=== PATIENT | male | born 1940 | race Caucasian/White ===

== ENCOUNTER → 2018-01-25 | Outpatient (REF) | payer MEDICARE ==
[2018-01-25 10:11] LABS: ESTIMATED AVERAGE GLUCOSE 114 MG/DL (60-110); HEMOGLOBIN A1c 5.6 %
[2018-01-25 10:14] LABS: PSA SCREENING 1.31 NG/ML (< 4.0)
== END ==
LOC: SKLAB6 07:00
DX: G30.9 Alzheimer's disease, unspecified (principal); E11.9 Type 2 diabetes mellitus without complications; N18.3 Chronic kidney disease, stage 3 (moderate); I11.0 Hypertensive heart disease with heart failure
CPT/HCPCS: 84443

== ENCOUNTER → 2018-03-29 | Outpatient (REF) | payer MEDICARE ==
[2018-03-29 08:19] LABS: HEMOGLOBIN 12.3 g/dl (13.5-17.5); MEAN CORPUSCULAR HEMOGLOBIN 28.1 pg (27.0-33.0); MEAN CORPUSCULAR HGB CONC 32.4 g/dl (32.0-36.5); MEAN CORPUSCULAR VOLUME 86.8 fl (80.0-96.0); PLATELET COUNT, AUTOMATED 165 10^3/uL (150-450); RED BLOOD COUNT 4.38 10^6/uL (4.30-6.10); RED CELL DISTRIBUTION WIDTH 14.6 % (11.5-14.5)
== END ==
LOC: SKLAB6 07:00
DX: D64.9 Anemia, unspecified (principal)
CPT/HCPCS: 85027

== ENCOUNTER → 2018-06-28 | Outpatient (REF) | payer MEDICARE ==
[2018-06-28 08:17] LABS: HEMATOCRIT 37.7 % (42.0-52.0); HEMOGLOBIN 12.2 g/dl (13.5-17.5); MEAN CORPUSCULAR HEMOGLOBIN 28.8 pg (27.0-33.0); MEAN CORPUSCULAR HGB CONC 32.4 g/dl (32.0-36.5); MEAN CORPUSCULAR VOLUME 88.9 fl (80.0-96.0); PLATELET COUNT, AUTOMATED 167 10^3/uL (150-450); RED BLOOD COUNT 4.24 10^6/uL (4.30-6.10)
[2018-06-28 11:11] LABS: ALBUMIN 3.5 GM/DL (3.2-5.2); BILIRUBIN,TOTAL 0.7 MG/DL (0.2-1.0); CALCIUM LEVEL 8.9 MG/DL (8.8-10.2); CREATININE FOR GFR 1.48 MG/DL (0.70-1.30); GLOMERULAR FILTRATION RATE 48.9 (>42); POTASSIUM SERUM 3.9 MEQ/L (3.5-5.1); TOTAL PROTEIN 6.3 GM/DL (6.4-8.2)
== END ==
LOC: SKLAB6 07:00
PROVIDERS: ATTEND Internal Medicine
DX: I48.91 Unspecified atrial fibrillation (principal); F03.90 Unspecified dementia, unspecified severity, without behavioral disturbance, psychotic disturbance, mood disturbance, and anxiety

== ENCOUNTER → 2018-07-02 | Outpatient (REF) | payer MEDICARE ==
[2018-07-02 13:35] LABS: INFLUENZA A AMPLIFICATION NEGATIVE (NEGATIVE); INFLUENZA B AMPLIFICATION NEGATIVE (NEGATIVE)
[2018-07-02 14:02] LABS: CALCIUM LEVEL 9.4 MG/DL (8.8-10.2); CREATININE FOR GFR 2.64 MG/DL (0.70-1.30); GLOMERULAR FILTRATION RATE 25.1 (>42); POTASSIUM SERUM 3.8 MEQ/L (3.5-5.1)
== END ==
LOC: SKLAB6 06:00
PROVIDERS: ATTEND Internal Medicine
DX: R19.7 Diarrhea, unspecified (principal)

== ENCOUNTER → 2018-07-03 | Outpatient (REF) | payer MEDICARE ==
[2018-07-03 07:25] LABS: HEMATOCRIT 39.5 % (42.0-52.0); HEMOGLOBIN 12.9 g/dl (13.5-17.5); MEAN CORPUSCULAR HGB CONC 32.7 g/dl (32.0-36.5); MEAN CORPUSCULAR VOLUME 88.8 fl (80.0-96.0); PLATELET COUNT, AUTOMATED 182 10^3/uL (150-450); RED BLOOD COUNT 4.45 10^6/uL (4.30-6.10); WHITE BLOOD COUNT 15.5 10^3/uL (4.0-10.0)
[2018-07-03 08:05] LABS: CALCIUM LEVEL 8.7 MG/DL (8.8-10.2); CREATININE FOR GFR 2.17 MG/DL (0.70-1.30); GLOMERULAR FILTRATION RATE 31.5 (>42); POTASSIUM SERUM 3.9 MEQ/L (3.5-5.1)
== END ==
LOC: SKLAB6 07:00
PROVIDERS: ATTEND Internal Medicine
DX: R19.7 Diarrhea, unspecified (principal)

== ENCOUNTER → 2018-07-04 | Outpatient (REF) | payer MEDICARE ==
[2018-07-04 07:56] LABS: BASO % 0.3 % (0.0-1.0); EOS # 0.5 10^3/uL (0.0-0.50); EOS % 4.2 % (0.0-3.0); HEMATOCRIT 41.8 % (42.0-52.0); HEMOGLOBIN 13.6 g/dl (13.5-17.5); LYMPH # 3.1 10^3/uL (1.5-4.5); LYMPH % 27.4 % (24.0-44.0); MEAN CORPUSCULAR HEMOGLOBIN 29.3 pg (27.0-33.0); MEAN CORPUSCULAR HGB CONC 32.5 g/dl (32.0-36.5); MEAN CORPUSCULAR VOLUME 90.1 fl (80.0-96.0); MONO # 0.7 10^3/uL (0.0-0.8); MONO % 6.4 % (0.0-5.0); NEUTROPHILS % 60.9 % (36.0-66.0); PLATELET COUNT, AUTOMATED 218 10^3/uL (150-450); RED BLOOD COUNT 4.64 10^6/uL (4.30-6.10); WHITE BLOOD COUNT 11.4 10^3/uL (4.0-10.0)
[2018-07-04 08:33] LABS: CALCIUM LEVEL 8.9 MG/DL (8.8-10.2); CREATININE FOR GFR 1.56 MG/DL (0.70-1.30); GLOMERULAR FILTRATION RATE 46.1 (>42); POTASSIUM SERUM 3.8 MEQ/L (3.5-5.1)
== END ==
LOC: SKLAB6 07:00
PROVIDERS: ATTEND Internal Medicine
DX: I48.91 Unspecified atrial fibrillation (principal)

== ENCOUNTER → 2018-07-05 | Outpatient (REF) | payer MEDICARE ==
[2018-07-05 06:33] LABS: APPEARANCE, URINE TURBID (CLEAR); BACTERIA, URINE AUTO 2+ (NEGATIVE); BILIRUBIN, URINE AUTO NEGATIVE (NEGATIVE); BLOOD, URINE BLOOD 2+ (NEGATIVE); COLOR, URINE YELLOW (YELLOW); GLUCOSE, URINE (UA) AUTO NEGATIVE (NEGATIVE); KETONE, URINE AUTO NEGATIVE (NEGATIVE); LEUKOCYTE ESTERASE, URINE AUTO 3+ (NEGATIVE); MUCUS, URINE SMALL (NEGATIVE); NITRITE, URINE AUTO NEGATIVE (NEGATIVE); PROTEIN, URINE AUTO 1+ mg/dL (NEGATIVE); RBC, URINE AUTO 26 /HPF (0-3); SPECIFIC GRAVITY URINE AUTO 1.011 (1.002-1.035); SQUAMOUS EPITHELIAL CELL UR AU 0 /HPF (0-6); UROBILINOGEN, URINE AUTO 0.2 mg/dL (0.0-2.0); WBC, URINE AUTO TNTC /HPF (0-3)
== END ==
LOC: SKLAB6 05:45
PROVIDERS: ATTEND Internal Medicine
DX: R39.89 Other symptoms and signs involving the genitourinary system (principal); Z79.899 Other long term (current) drug therapy

== ENCOUNTER → 2018-07-10 | Outpatient (REF) | payer MEDICARE ==
[2018-07-10 08:35] LABS: CALCIUM LEVEL 8.5 MG/DL (8.8-10.2); CREATININE FOR GFR 1.38 MG/DL (0.70-1.30); GLOMERULAR FILTRATION RATE 53.1 (>42); POTASSIUM SERUM 4.1 MEQ/L (3.5-5.1)
== END ==
LOC: SKLAB6 07:00
PROVIDERS: ATTEND Internal Medicine
DX: I10 Essential (primary) hypertension (principal); I48.0 Paroxysmal atrial fibrillation; G30.9 Alzheimer's disease, unspecified; Z79.899 Other long term (current) drug therapy

== ENCOUNTER → 2018-07-26 | Outpatient (REF) | payer MEDICARE ==
[2018-07-26 09:12] LABS: HEMOGLOBIN A1c 5.7 %
== END ==
LOC: SKLAB6 07:00
PROVIDERS: ATTEND Internal Medicine
DX: E11.9 Type 2 diabetes mellitus without complications (principal)

== ENCOUNTER → 2018-08-01 | Outpatient (REF) | payer MEDICARE ==
[2018-08-01 16:12] LABS: HEMATOCRIT 38.7 % (42.0-52.0); HEMOGLOBIN 12.2 g/dl (13.5-17.5); MEAN CORPUSCULAR HEMOGLOBIN 28.6 pg (27.0-33.0); MEAN CORPUSCULAR HGB CONC 31.5 g/dl (32.0-36.5); MEAN CORPUSCULAR VOLUME 90.8 fl (80.0-96.0); PLATELET COUNT, AUTOMATED 168 10^3/uL (150-450); RED BLOOD COUNT 4.26 10^6/uL (4.30-6.10); WHITE BLOOD COUNT 10.1 10^3/uL (4.0-10.0)
--- NOTE | 2018-08-01 16:42 | REP ---
Left toes four views History: The left toe cellulitis There is no acute fracture or dislocation. There is narrowing of the proximal and distal interphalangeal joint spaces. A defect is present in the soft tissue of the second digit. There is no definite evidence of osteomyelitis. Impression: Degenerative change as described above. Electronically Signed by Barber Miller MD 08/01/2018 04:33 P
== END ==
LOC: SKLAB6 16:09
PROVIDERS: ATTEND Internal Medicine
DX: M19.072 Primary osteoarthritis, left ankle and foot (principal); L08.9 Local infection of the skin and subcutaneous tissue, unspecified

== ENCOUNTER → 2018-08-17 | Outpatient (REF) | payer MEDICARE ==
--- NOTE | 2018-08-17 15:57 | REP ---
LEFT TOE, FOUR VIEWS: HISTORY: Persistent cellulitis 2nd toe. COMPARISON: 08/01/2018 There is no acute fracture or dislocation. There is narrowing of the first metatarsal phalangeal and proximal and distal interphalangeal joint spaces. A defect is present in the soft tissue of the second digit. Soft tissue swelling is present. There is no definite evidence of osteomyelitis. IMPRESSION: Degenerative change as described above. Unreviewed
== END ==
LOC: SKLAB6 14:08
PROVIDERS: ATTEND Internal Medicine
DX: L03.032 Cellulitis of left toe (principal)

== ENCOUNTER → 2018-10-15 | Outpatient (REF) | payer MEDICARE ==
[2018-10-15 11:30] LABS: HEMOGLOBIN 13.7 g/dl (13.5-17.5); MEAN CORPUSCULAR HEMOGLOBIN 29.5 pg (27.0-33.0); MEAN CORPUSCULAR HGB CONC 32.6 g/dl (32.0-36.5); MEAN CORPUSCULAR VOLUME 90.5 fl (80.0-96.0); PLATELET COUNT, AUTOMATED 196 10^3/uL (150-450); RED BLOOD COUNT 4.64 10^6/uL (4.30-6.10); WHITE BLOOD COUNT 11.8 10^3/uL (4.0-10.0)
[2018-10-15 11:51] LABS: ERYTHROCYTE SEDIMENTATION RATE 47 mm/hr (0-20)
[2018-10-15 11:53] LABS: C REACTIVE PROTEIN QUANTITATIV 4.98 MG/DL (0.00-0.30); URIC ACID 7.3 MG/DL (3.5-7.2)
== END ==
LOC: SKLAB6 10:28
PROVIDERS: ATTEND Internal Medicine
DX: R22.32 Localized swelling, mass and lump, left upper limb (principal); M79.89 Other specified soft tissue disorders

== ENCOUNTER → 2018-10-17 | Outpatient (REF) | payer MEDICARE | LOC: SKLAB6 07:00 | PROVIDERS: ATTEND Internal Medicine | DX: M10.9 Gout, unspecified (principal) ==

== ENCOUNTER → 2018-10-21 | Outpatient (REF) | payer MEDICARE | LOC: SKLAB6 07:00 | PROVIDERS: ATTEND Internal Medicine | DX: R31.9 Hematuria, unspecified (principal) ==

== ENCOUNTER → 2018-10-21 | Outpatient (REF) | payer MEDICARE | LOC: SKLAB6 09:58 → EDSTATUS 10:59 → SKLAB6 10:59 | PROVIDERS: ATTEND Internal Medicine | DX: R31.9 Hematuria, unspecified (principal) ==

== ENCOUNTER → 2018-10-26 | Outpatient (REF) | payer MEDICARE ==
[2018-10-26 07:53] LABS: CALCIUM LEVEL 8.1 MG/DL (8.8-10.2); CREATININE FOR GFR 1.33 MG/DL (0.70-1.30); GLOMERULAR FILTRATION RATE 55.2 (>42); POTASSIUM SERUM 4.3 MEQ/L (3.5-5.1)
== END ==
LOC: SKLAB6 07:00
PROVIDERS: ATTEND Internal Medicine
DX: N39.0 Urinary tract infection, site not specified (principal)

== ENCOUNTER → 2018-10-30 | Outpatient (REF) | payer MEDICARE ==
[2018-10-30 12:02] LABS: HEMATOCRIT 37.7 % (42.0-52.0); HEMOGLOBIN 12.4 g/dl (13.5-17.5); MEAN CORPUSCULAR HEMOGLOBIN 29.9 pg (27.0-33.0); MEAN CORPUSCULAR HGB CONC 32.9 g/dl (32.0-36.5); MEAN CORPUSCULAR VOLUME 90.8 fl (80.0-96.0); PLATELET COUNT, AUTOMATED 208 10^3/uL (150-450); RED BLOOD COUNT 4.15 10^6/uL (4.30-6.10); WHITE BLOOD COUNT 9.5 10^3/uL (4.0-10.0)
== END ==
LOC: SKLAB6 10:34
PROVIDERS: ATTEND Internal Medicine
DX: R31.9 Hematuria, unspecified (principal); N39.0 Urinary tract infection, site not specified

== ENCOUNTER → 2018-10-31 | Outpatient (REF) | payer MEDICARE | LOC: SKLAB6 08:37 | PROVIDERS: ATTEND Internal Medicine | DX: R31.9 Hematuria, unspecified (principal); N39.0 Urinary tract infection, site not specified ==

== ENCOUNTER → 2018-11-01 | Outpatient (REF) | payer MEDICARE, OTHER, MEDICAID ==
[~2018-11-01] MED LIST: ACET-907 PO; AMLO5TAB6 PO; BISA10SU20 PR; CARV6.25 PO; COLA100C5 PO; D-10TAB2 PO; ELIQ2.5T PO; ENEMENE PR; FLOM0.4C39 PO; LEVA750T7 PO; LOSA50TA88 PO; MOM30SS PO; QUET1TAB7 PO; QUET1TAB8 PO; QUET5TAB PO; REME15TA PO; SYST1SOL4 OU
[2018-11-01 10:53] LABS: HEMOGLOBIN 12.6 g/dl (13.5-17.5); MEAN CORPUSCULAR HEMOGLOBIN 30.1 pg (27.0-33.0); MEAN CORPUSCULAR HGB CONC 32.3 g/dl (32.0-36.5); MEAN CORPUSCULAR VOLUME 93.1 fl (80.0-96.0); PLATELET COUNT, AUTOMATED 175 10^3/uL (150-450); RED BLOOD COUNT 4.19 10^6/uL (4.30-6.10); WHITE BLOOD COUNT 16.8 10^3/uL (4.0-10.0)
[2018-11-01 11:22] LABS: CALCIUM LEVEL 8.7 MG/DL (8.8-10.2); CREATININE FOR GFR 1.56 MG/DL (0.70-1.30); GLOMERULAR FILTRATION RATE 45.9 (>42); POTASSIUM SERUM 4.4 MEQ/L (3.5-5.1); THYROID STIMULATING HORMONE 0.516 uIU/ML (0.358-3.740)
--- NOTE | 2018-11-01 13:49 | REP ---
PA and lateral chest: There are no comparisons. The lung harrington are clear. The cardiac size is upper normal. The gustavo, mediastinum, and skeletal structures are unremarkable. Impression: Essentially negative PA and lateral chest. Electronically Signed by Orlando Lou MD 11/01/2018 01:42 P
== END ==
LOC: SKLAB6 11:00
PROVIDERS: ATTEND Internal Medicine
DX: D72.829 Elevated white blood cell count, unspecified (principal); R53.83 Other fatigue

== ENCOUNTER → 2018-11-02 | Outpatient (REF) | payer MEDICARE, OTHER, MEDICAID ==
[2018-11-02 07:31] LABS: HEMOGLOBIN 12.5 g/dl (13.5-17.5); MEAN CORPUSCULAR HEMOGLOBIN 29.8 pg (27.0-33.0); MEAN CORPUSCULAR HGB CONC 32.1 g/dl (32.0-36.5); MEAN CORPUSCULAR VOLUME 93.1 fl (80.0-96.0); PLATELET COUNT, AUTOMATED 162 10^3/uL (150-450); RED BLOOD COUNT 4.19 10^6/uL (4.30-6.10); WHITE BLOOD COUNT 10.1 10^3/uL (4.0-10.0)
== END ==
LOC: SKLAB6 07:00
PROVIDERS: ATTEND Internal Medicine
DX: D72.829 Elevated white blood cell count, unspecified (principal)

== ENCOUNTER 2018-11-09 17:20 | Inpatient (IN) | payer MEDICARE, OTHER, MEDICAID ==
[~2018-11-09] VITALS: Ht 188 cm; Wt 100.1 kg
[2018-11-09] MEDS ORDERED: NS 1,000 ML IV SCH (17:41)
[2018-11-09] MEDS ORDERED: LIDOCAINE 2% 5ML JELLY UROJET TOP ONE (18:00)
[2018-11-09 18:39] LABS: BASO % 0.5 % (0.0-1.0); EOS # 0.3 10^3/uL (0.0-0.50); EOS % 4.3 % (0.0-3.0); HEMATOCRIT 39.5 % (42.0-52.0); HEMOGLOBIN 12.8 g/dl (13.5-17.5); LYMPH # 2.1 10^3/uL (1.5-4.5); LYMPH % 28.9 % (24.0-44.0); MEAN CORPUSCULAR HEMOGLOBIN 30.1 pg (27.0-33.0); MEAN CORPUSCULAR HGB CONC 32.4 g/dl (32.0-36.5); MEAN CORPUSCULAR VOLUME 92.9 fl (80.0-96.0); MONO # 0.6 10^3/uL (0.0-0.8); MONO % 8.5 % (0.0-5.0); NEUTROPHILS # 4.1 10^3/uL (1.8-7.7); NEUTROPHILS % 56.3 % (36.0-66.0); PLATELET COUNT, AUTOMATED 158 10^3/uL (150-450); RED BLOOD COUNT 4.25 10^6/uL (4.30-6.10); WHITE BLOOD COUNT 7.4 10^3/uL (4.0-10.0)
[2018-11-09] MEDS ORDERED: QUET1TAB8 PO (18:48)
[2018-11-09] MEDS ORDERED: LOSA50TA88 PO (18:48)
[2018-11-09] MEDS ORDERED: QUET5TAB PO (18:48)
[2018-11-09] MEDS ORDERED: QUET1TAB7 PO (18:48)
[2018-11-09] MEDS ORDERED: ACET-907 PO (18:48)
[2018-11-09] MEDS ORDERED: ENEMENE PR (18:48)
[2018-11-09] MEDS ORDERED: BISA10SU20 PR (18:48)
[2018-11-09] MEDS ORDERED: REME15TA PO (18:48)
[2018-11-09] MEDS ORDERED: ELIQ2.5T PO (18:48)
[2018-11-09] MEDS ORDERED: SYST1SOL4 OU (18:48)
[2018-11-09] MEDS ORDERED: COLA100C5 PO (18:48)
[2018-11-09] MEDS ORDERED: MOM30SS PO (18:48)
[2018-11-09] MEDS ORDERED: FLOM0.4C39 PO (18:48)
[2018-11-09] MEDS ORDERED: D-10TAB2 PO (18:48)
[2018-11-09] MEDS ORDERED: AMLO5TAB6 PO (18:48)
[2018-11-09] MEDS ORDERED: CARV6.25 PO (18:48)
[2018-11-09 18:51] LABS: INR 1.14; PROTHROMBIN TIME 14.3 SECONDS (11.8-14.0)
[2018-11-09 18:52] LABS: PARTIAL THROMBOPLASTIN TIME 38.2 SECONDS (25.0-38.4)
[2018-11-09 19:12] LABS: ALBUMIN 3.5 GM/DL (3.2-5.2); BILIRUBIN,DIRECT 0.2 MG/DL (0.0-0.2); BILIRUBIN,TOTAL 0.5 MG/DL (0.2-1.0); MAGNESIUM LEVEL 2.2 MG/DL (1.8-2.4); TOTAL PROTEIN 6.8 GM/DL (6.4-8.2)
[2018-11-09] MEDS ORDERED: MEROPENEM INJ 1 GM in APPROPRIATE DILUENT 1 EA IV ONE (19:15)
--- NOTE | 2018-11-09 19:15 | REP ---
Portable chest, 06:42 p.m., single AP view with the patient sitting: Comparison is 11/01/2018. The lung harrington are clear. The cardiac size is normal. The thoracic aorta is tortuous, unchanged. There is an enchondroma versus bone infarct in the left humeral head, unchanged. Impression: No acute cardiopulmonary findings. Electronically Signed by Orlando Lou MD 11/09/2018 07:06 P
[2018-11-09] MEDS ORDERED: NS 1,000 ML IV ONE ×2 (19:30)
[2018-11-09] MEDS ORDERED: ACETAMINOPHEN TAB 650MG DOSE (2X325MG) PO PRN (20:30)
[2018-11-09] MEDS ORDERED: MORPHINE 4 MG/ML 1ML VIAL/SYRINGE (J2270) IV PRN (20:30)
[2018-11-09] MEDS ORDERED: TAMSULOSIN 0.4 MG CAP PO ONE (20:30)
[2018-11-09] MEDS: NS 1,000 ML IV SCH (20:30)
--- NOTE | 2018-11-09 20:48 | HPEPDOC ---
General Date of Admission 11/09/18 Date of Service: Nov 09, 2018 Attending Physician: IRENA BRENNAN MD Chief Complaint The patient is a 78-year-old male admitted with a reason for visit of Kidney Iss ues. Source: RN/, [facility] records Exam Limitations: Dementia Timing/Duration: Unsure Severity: Other (applicable) Associated Symptoms: Other (. Urinary irritation) History of Present Illness 78 years old white male who has advanced dementia, resides at [facility] was sent from there with the diagnosis of left-sided renal colic left-sided hydronephrosis and possible 9 mm stone. Urology production sound mixer was called by ED and was advised to admit patient and patient will be evaluated by urology and in a.m. for any further intervention if needed. Patient has advanced dementia, unable to obtained history from him. History was obtained from covering M.D. at night and from her [facility] records, which were reviewed personally by ut Home Medications Scheduled Amlodipine Besylate (Amlodipine Besylate) 5 Mg Tablet, 5 MG PO DAILY, (Reported) Apixaban (Eliquis) 2.5 Mg Tablet, 2.5 MG PO BID, (Reported) Carvedilol (Carvedilol) 6.25 Mg Tablet, 6.25 MG PO BID, (Reported) Cholecalciferol (Vitamin D3) (Vitamin D3) 1,000 Unit Tablet, 1,000 UNIT PO DAILY, (Reported) Docusate Sodium (Colace) 100 Mg Capsule, 200 MG PO DAILY, (Reported) Losartan Potassium (Losartan Potassium) 50 Mg Tablet, 50 MG PO DAILY, (Reported) Milk Of Magnesia (Milk of Magnesia) 2,400 Mg/10 Ml Oral.susp, 30 ML PO DAILY, (Reported) Mirtazapine (Remeron) 15 Mg Tablet, 15 MG PO QHS, (Reported) Propylene Glycol/Peg 400/Pf (Systane 0.3-0.4% Eye Drop) 1 Each Droperette, 1 DROP OU BID, (Reported) Quetiapine Fumarate (Quetiapine Fumarate) 25 Mg Tablet, 37.5 MG PO QAM, (Reported) TAKE WITH 50MG TAB = 87.5MG DOSE Quetiapine Fumarate (Quetiapine Fumarate) 50 Mg Tablet, 50 MG PO DAILY, (Reported) 87.5MG DOSE Quetiapine Fumarate (Quetiapine Fumarate) 100 Mg Tablet, 100 MG PO QHS, (Reported) Tamsulosin HCl (Flomax) 0.4 Mg Capsule, 0.4 MG PO QHS, (Reported) Scheduled PRN Acetaminophen (Tylenol) 325 Mg Tablet, 650 MG PO Q4H PRN for PAIN, (Reported) Bisacodyl (Bisacodyl) 10 Mg Supp.rect, 10 MG NM DAILY PRN for CONSTIPATION, (Reported) Sodium Phosphate,[place]-Dibasic (Enema) 133 Ml Enema, 1 JOEL NM DAILY PRN for CONSTIPATION, (Reported) Allergies Coded Allergies: Penicillins (Verified Allergy, Unknown, 11/09/18) Past Medical History Medical History Dementia, A. fib, agitation secondary to dementia, constipation, hypertension, BPH, vitamin D deficiency Surgical History None available Family History Significant Family History: Other Social History * Smoker: non-smoker (unavailable) Alcohol: Denies Drugs: denies A-FIB/CHADSVASC A-FIB History Current/History of A-Fib/PAF?: Yes Current PO Anticoag Therapy: Yes Review of Systems Constitutional: Denies: Chills, Fever, Malaise, Night Sweats, Weakness, Fatigue, Weight Loss, Lethargy, Other Eyes: Denies: Pain, Vision change, Conjunctivae inflammation, Eyelid inflammation, Redness, Other ENT: Denies: Head Aches, Ear Pain, Dysphagia, Sinus Congestion, Post Nasal Drip, Sore Throat, Epistaxis, Other Symptoms Skin: Denies: Rash, Lesions, Jaundice, Bruising, Itching, Dry, Breakdown, Nail Changes, Other Pulmonary: Denies: Dyspnea, Cough, Pleuritic Chest Pain, Other Symptoms Cardiovascular: Denies: Chest Pain, Palpitations, Orthopnea, Paroxysmal Noc. Dyspnea, Edema, Lt Headedness, Other Symptoms Gastrointestinal: Denies: Nausea, Vomiting, Abdominal Pain, Diarrhea, Constipation, Melena, Hematochezia, Other Symptoms Genitourinary: Reports: Dysuria Hematologic: Denies: Bruising, Bleeding Excessively, Petecchia, Purpura, Enlarged Lymph Nodes, Other Hematologic Endocrine: Denies: Polydipsia, Polyphagia, Polyuria, Heat Intolerance, Cold Intolerance, Other Endocrine Sx Musculoskeletal: Denies: Neck Pain, Back Pain, Shoulder Pain, Arm Pain, Hand Pain, Leg Pain, Foot Pain, Joint Pain, Muscle Pain, Spasms, Other Symptoms Neurological: Denies: Weakness, Numbness, Incoordination, Change in speech, Confusion, Seizures, Other Symptoms Psych: Denies: Mood Normal, Anxiety, Depression, Memory Issues, Thoughts of Self Harm, Anger, Thoughts of Harming Other, Other Psych Physical Examination General Exam: Positive: Cooperative, Mild Distress, Other (anxious) Eye Exam: Positive: PERRLA, Conjunctiva & lids normal ENT Exam: Positive: Atraumatic Neck Exam: Positive: Supple Chest Exam: Positive: Clear to auscultation Heart Exam: Positive: Rate Normal, Normal S1, Normal S2 Abdomen Exam: Positive: Normal bowel sounds, Soft Extremity Exam: Positive: Normal pulses Skin Exam: Positive: Nl turgor and temperature Neuro Exam: Positive: Other (, unable to do exam) Psych Exam: Positive: Anxiety Vital Signs Vital Signs Date Time Temp Pulse Resp B/P (MAP) Pulse Ox O2 Delivery O2 Flow Rate FiO2 11/09/18 19:37 97.3 63 20 153/76 (101) 98 Room Air Laboratory Data Labs 24H Laboratory Tests 2 11/09/18 17:49: Immature Granulocyte % (Auto) 1.5, White Blood Count 7.4, Red Blood Count 4.25L, Hemoglobin 12.8L, Hematocrit 39.5L, Mean Corpuscular Volume 92.9, Mean Corpuscular Hemoglobin 30.1, Mean Corpuscular Hemoglobin Concent 32.4, Red Cell Distribution Width 13.8, Platelet Count 158, Neutrophils (%) (Auto) 56.3, Lymphocytes (%) (Auto) 28.9, Monocytes (%) (Auto) 8.5H, Eosinophils (%) (Auto) 4.3H, Basophils (%) (Auto) 0.5, Neutrophils # (Auto) 4.1, Lymphocytes # (Auto) 2.1, Monocytes # (Auto) 0.6, Eosinophils # (Auto) 0.3, Basophils # (Auto) 0.0, Nucleated Red Blood Cells % (auto) 0.0, Prothrombin Time 14.3H, Prothromb Time International Ratio 1.14, Activated Partial Thromboplast Time 38.2, Urine Color YELLOW, Urine Appearance TURBIDH, Urine pH 6.0, Urine Specific [place] 1.013, Urine Protein 2+H, Urine Glucose (UA) NEGATIVE, Urine Ketones NEGATIVE, Urine Blood 3+H, Urine Nitrite POSITIVEH, Urine Bilirubin NEGATIVE, Urine Urobilinogen 0.2, Urine Leukocyte Esterase 3+H, Urine WBC (Auto) TNTCH, Urine RBC (Auto) TNTCH, Urine Hyaline Casts (Auto) 0, Urine Bacteria (Auto) 1+H, Urine Squamous Epithelial Cells 0, Urine Amorphous Sediment SMALLH, Urine Mucus (Auto) SMALL, Urine Sperm (Auto) , Lactic Acid Level 2.3*H, Magnesium Level 2.2, Aspartate Amino Transf (AST/SGOT) 15, Alanine Aminotransferase (ALT/SGPT) 28, Alkaline Phosphatase 94, Total Bilirubin 0.5, Direct Bilirubin 0.2, Total Protein 6.8, Albumin 3.5, Albumin/Globulin Ratio 1.06, Lipase 101 11/09/18 18:37: POC Glucose (Misc Panel) 130H, POC Sodium (Misc Panel) 142, POC Potassium (Misc Panel) 4.9, POC Chloride (Misc Panel) 107, POC Total CO2 (Misc Panel) 24.0, POC Blood Urea Nitrogen (Misc Panel 34H, POC Ionized Calcium (Misc Panel) 4.8, POC Creatinine (Misc Panel) 1.8H, POC Hematocrit (Misc Panel) 37.0L CBC/BMP Laboratory Tests 11/09/18 17:49 Red Blood Count 4.25 L, Mean Corpuscular Volume 92.9, Mean Corpuscular Hemoglobin 30.1, Mean Corpuscular Hemoglobin Concent 32.4, Red Cell Distribution Width 13.8, Neutrophils (%) (Auto) 56.3, Lymphocytes (%) (Auto) 28.9, Monocytes (%) (Auto) 8.5 H, Eosinophils (%) (Auto) 4.3 H, Basophils (%) (Auto) 0.5, Neutrophils # (Auto) 4.1, Lymphocytes # (Auto) 2.1, Monocytes # (Auto) 0.6, Eosinophils # (Auto) 0.3, Basophils # (Auto) 0.0 Microbiology Microbiology 11/09/18 Blood Culture, Received Pending 11/09/18 Blood Culture, Received Pending 11/09/18 Urine Culture, Received Pending Problems (1) Renal colic on left side Status: Acute Problem Text: 78 years old white male admitted with the left-sided hydronephrosis, left renal calculi and renal colic Patient does have a history of for renal calculi in the past Admit patient to the medical floor IV fluids normal saline 100 mL per hour Pain management with morphine sulfate 4 mg IV every 4-6 hours when necessary urology consult was called from ED and patient will be seen in a.m. Hold Nicci course and keep patient nothing by mouth in anticipation of urology to do any invasive procedure such as cystoscopy with stone removal Continue all other home meds Patient nothing by mouth except meds Activity as tolerated Bilateral SCDs for DVT prophylaxis Addendum: Dr. Kothari called me Guest discussed with her. Patient will be possibly taken to or on Monday or Monday. In the meantime, will give a trial of IV fluids, pain management and Flomax to see if the patient can pass the stone (2) Hydronephrosis Status: Acute Problem Text: Most likely secondary to obstruction IV fluids Nothing by mouth Further, as per urology recommendations (3) UTI (urinary tract infection) Status: Acute Problem Text: Pt has already been started on Merrem Will continue the same Urine cultures has been ordered I&O's Follow urine cultures report once available and change antibiotics accordingly Plan / VTE VTE Prophylaxis Ordered?: Yes IRENA BRENNAN MD Nov 09, 2018 20:48
[2018-11-09] MEDS: MIRTAZAPINE 15 MG TAB PO SCH (23:53)
[2018-11-09] MEDS: QUEtiapine FUMARATE 100 MG TAB PO SCH (23:55)
[2018-11-09] MEDS: CARVedilol 6.25 MG TAB PO SCH (23:55)
[2018-11-10] VITALS (8 sets, daily range): BP systolic 113–155; BP diastolic 58–95
[2018-11-10 08:37] LABS: HEMATOCRIT 35.8 % (42.0-52.0); HEMOGLOBIN 11.5 g/dl (13.5-17.5); MEAN CORPUSCULAR HEMOGLOBIN 29.5 pg (27.0-33.0); MEAN CORPUSCULAR HGB CONC 32.1 g/dl (32.0-36.5); MEAN CORPUSCULAR VOLUME 91.8 fl (80.0-96.0); PLATELET COUNT, AUTOMATED 144 10^3/uL (150-450); WHITE BLOOD COUNT 7.2 10^3/uL (4.0-10.0)
[2018-11-10 09:01] LABS: ALBUMIN 2.8 GM/DL (3.2-5.2); BILIRUBIN,TOTAL 0.6 MG/DL (0.2-1.0); CALCIUM LEVEL 8.4 MG/DL (8.8-10.2); CREATININE FOR GFR 1.35 MG/DL (0.70-1.30); GLOMERULAR FILTRATION RATE 54.3 (>42); POTASSIUM SERUM 4.3 MEQ/L (3.5-5.1); TOTAL PROTEIN 6.2 GM/DL (6.4-8.2)
[2018-11-10] MEDS: CARVedilol 6.25 MG TAB PO SCH ×2 (09:59→20:22)
[2018-11-10] MEDS: VITAMIN D 1,000 INTERNATIONAL UNITS TABLET PO SCH (09:59)
[2018-11-10] MEDS: MEROPENEM INJ 1 GM in APPROPRIATE DILUENT 1 EA IV SCH ×2 (09:59→20:21)
[2018-11-10] MEDS: QUEtiapine FUMARATE 25 MG TAB PO SCH (10:00)
[2018-11-10] MEDS: amLODIPine 5 MG TAB PO SCH (10:00)
[2018-11-10] MEDS: LOSARTAN 50 MG TAB PO SCH (10:01)
[2018-11-10] MEDS: QUEtiapine FUMARATE 50 MG TAB PO SCH (10:01)
--- NOTE | 2018-11-10 10:32 | ECGEPIP ---
[facility] Test Date: 2018-11-10 Pat Name: HAYES PANG Department: Room: [place] [address] Gender: Male Dentofacial Orthopedics Dentist: JUDI : 1940 Requested By: BRIAN Elizabeth Order Number: [id number] Reading MD: Regino Bernabe Measurements Intervals [place] Rate: 59 P: 51 FL: 208 QRS: 1 QRSD: 84 T: 0 QT: 383 QTc: 380 Interpretive Statements SINUS BRADYCARDIA WITH OCCASIONAL SUPRAVENTRICULAR PREMATURE COMPLEXES POOR R WAVE PROGRESSION COMPARED TO 11/09/18 POOR R WAVE PROGRESSION IS NEW, SUSPECT DUE TO LEAD POSITIONING Electronically Signed on 11-10-2018 10:31:58 EDT by Regino Bernabe
--- NOTE | 2018-11-10 12:51 | IPNPDOC ---
Date Seen The patient was seen on 11/10/18. Progress Note SUBJECTIVE: Disoriented to where he is and the date, but able to converse appropriately about why he is int he hospital."Kidney stone that needs to be removed." He denies anydysuria, urgency, frequency, flank pain, or chills. sitter at the bedside says pt has been cooperative and has not attempted to remove his iv site or interfere with his care. OBJECTIVE: Physical Examination VITALS: PLS SEE BELOW General Exam: Positive: Cooperative, Mild Distress, Other (anxious) Eye Exam: Positive: PERRLA, Conjunctiva & lids normal ENT Exam: Positive: Atraumatic Neck Exam: Positive: Supple Chest Exam: Positive: Clear to auscultation Heart Exam: Positive: Rate Normal, Normal S1, Normal S2 Abdomen Exam: Positive: Normal bowel sounds, Soft Extremity Exam: Positive: Normal pulses Skin Exam: Positive: Nl turgor and temperature Neuro Exam: Positive: Other (, unable to do exam) Psych Exam: Positive: Anxiety ADMISSION LABORATORY DATA: 11/09/18 17:49: Immature Granulocyte % (Auto) 1.5, White Blood Count 7.4, Red Blood Count 4.25L, Hemoglobin 12.8L, Hematocrit 39.5L, Mean Corpuscular Volume 92.9, Mean Corpuscular Hemoglobin 30.1, Mean Corpuscular Hemoglobin Concent 32.4, Red Cell Distribution Width 13.8, Platelet Count 158, Neutrophils (%) (Auto) 56.3, Lymphocytes (%) (Auto) 28.9, Monocytes (%) (Auto) 8.5H, Eosinophils (%) (Auto) 4.3H, Basophils (%) (Auto) 0.5, Neutrophils # (Auto) 4.1, Lymphocytes # (Auto) 2.1, Monocytes # (Auto) 0.6, Eosinophils # (Auto) 0.3, Basophils # (Auto) 0.0, Nucleated Red Blood Cells % (auto) 0.0, Prothrombin Time 14.3H, Prothromb Time International Ratio 1.14, Activated Partial Thromboplast Time 38.2, Urine Color YELLOW, Urine Appearance TURBIDH, Urine pH 6.0, Urine Specific [place] 1.013, Urine Protein 2+H, Urine Glucose (UA) NEGATIVE, Urine Ketones NEGATIVE, Urine Blood 3+H, Urine Nitrite POSITIVEH, Urine Bilirubin NEGATIVE, Urine Urobilinogen 0.2, Urine Leukocyte Esterase 3+H, Urine WBC (Auto) TNTCH, Urine RBC (Auto) TNTCH, Urine Hyaline Casts (Auto) 0, Urine Bacteria (Auto) 1+H, Urine Squamous Epithelial Cells 0, Urine Amorphous Sediment SMALLH, Urine Mucus (Auto) SMALL, Urine Sperm (Auto) , Lactic Acid Level 2.3*H, Magnesium Level 2.2, Aspartate Amino Transf (AST/SGOT) 15, Alanine Aminotransferase (ALT/SGPT) 28, Alkaline Phosphatase 94, Total Bilirubin 0.5, Direct Bilirubin 0.2, Total Protein 6.8, Albumin 3.5, Albumin/Globulin Ratio 1.06, Lipase 101 11/09/18 18:37: POC Glucose (Misc Panel) 130H, POC Sodium (Misc Panel) 142, POC Potassium (Misc Panel) 4.9, POC Chloride (Misc Panel) 107, POC Total CO2 (Misc Panel) 24.0, POC Blood Urea Nitrogen (Misc Panel 34H, POC Ionized Calcium (Misc Panel) 4.8, POC Creatinine (Misc Panel) 1.8H, POC Hematocrit (Misc Panel) 37.0L CBC/BMP Laboratory Tests 11/09/18 17:49 [Image 0] Red Blood Count 4.25 L, Mean Corpuscular Volume 92.9, Mean Corpuscular Hemoglobin 30.1, Mean Corpuscular Hemoglobin Concent 32.4, Red Cell Distribution Width 13.8, Neutrophils (%) (Auto) 56.3, Lymphocytes (%) (Auto) 28.9, Monocytes (%) (Auto) 8.5 H, Eosinophils (%) (Auto) 4.3 H, Basophils (%) (Auto) 0.5, Neutr ophils # (Auto) 4.1, Lymphocytes # (Auto) 2.1, Monocytes # (Auto) 0.6, Eosinophils # (Auto) 0.3, Basophils # (Auto) 0.0 Microbiology Microbiology 11/09/18 Blood Culture, Received Pending 11/09/18 Blood Culture, Received Pending 11/09/18 Urine Culture, Received Pending LABORATORY DATA, IMAGING STUDIES, MICROBIOLOGY: PLS SEE BELOW ASSESSMENT AND PLAN: 78 years old white male who has advanced dementia, resides at [facility] was sent from there with the diagnosis of left-sided renal colic left-sided hydronephrosis and possible 9 mm stone. Urology content development manager was called by ED and was advised to admit patient and patient will be evaluated by urology and in a.m. for any further intervention if needed. Patient has advanced dementia, unable to obtained history from him. History was obtained from covering M.D. at night and from her [facility] records, which we re reviewed personally by me ACUTE ISSUES: (1) Renal colic on left side Status: Acute Problem Text: 78 years old white male admitted with the left-sided hydronephrosis, left renal calculi and renal colic Patient does have a history of for renal calculi in the past Admit patient to the medical floor IV fluids normal saline 100 mL per hour Pain management with morphine sulfate 4 mg IV every 4-6 hours when necessary urology consult was called from ED and patient will be seen in a.m. Hold Nicci course and keep patient nothing by mouth in anticipation of urology to do any invasive procedure such as cystoscopy with stone removal Continue all other home meds Patient nothing by mouth except meds Activity as tolerated Bilateral SCDs for DVT prophylaxis Addendum: Dr. Kothari called me Guest discussed with her. Patient will be possibly taken to or on Monday or Monday. In the meantime, will give a trial of IV fluids, pain management and Flomax to see if the patient can pass the stone (2) Hydronephrosis Status: Acute Problem Text: Most likely secondary to obstruction IV fluids Nothing by mouth Further, as per urology recommendations (3) UTI (urinary tract infection) Status: Acute Problem Text: Pt has already been started on Merrem Will continue the same Urine cultures has been ordered I&O's Follow urine cultures report once available and change antibiotics accordingly Acute delirium on chronic Dementia, frequent re-orientation requriing a sitter due to acute delirium A. fib, rate controlled resumed rate control meds-coreg hypertension, resumed home meds-on losartan, coreg, norvasc BPH, chronic vitamin D deficiency chronic Plan / VTE VTE Prophylaxis Ordered?: Yes VS, I&O, 24H, Fishbone Vital Signs/I&O Vital Signs Date Time Temp Pulse Resp B/P (MAP) Pulse Ox O2 Delivery O2 Flow Rate FiO2 11/10/18 06:00 96.9 55 18 143/62 (89) 96 7/26/19 22:50 Room Air I&O- Last 24 Hours up to 6 AM 11/10/18 06:00 Intake Total 1450 ml Output Total 700 ml Balance 750 ml Laboratory Data 24H LABS Laboratory Tests 2 11/09/18 17:49: Immature Granulocyte % (Auto) 1.5, White Blood Count 7.4, Red Blood Count 4.25L, Hemoglobin 12.8L, Hematocrit 39.5L, Mean Corpuscular Volume 92.9, Mean Corpuscular Hemoglobin 30.1, Mean Corpuscular Hemoglobin Concent 32.4, Red Cell Distribution Width 13.8, Platelet Count 158, Neutrophils (%) (Auto) 56.3, Lymphocytes (%) (Auto) 28.9, Monocytes (%) (Auto) 8.5H, Eosinophils (%) (Auto) 4.3H, Basophils (%) (Auto) 0.5, Neutrophils # (Auto) 4.1, Lymphocytes # (Auto) 2.1, Monocytes # (Auto) 0.6, Eosinophils # (Auto) 0.3, Basophils # (Auto) 0.0, Nucleated Red Blood Cells % (auto) 0.0, Prothrombin Time 14.3H, Prothromb Time International Ratio 1.14, Activated Partial Thromboplast Time 38.2, Urine Color YELLOW, Urine Appearance TURBIDH, Urine pH 6.0, Urine Specific [place] 1.013, Urine Protein 2+H, Urine Glucose (UA) NEGATIVE, Urine Ketones NEGATIVE, Urine Blood 3+H, Urine Nitrite POSITIVEH, Urine Bilirubin NEGATIVE, Urine Urobilinogen 0.2, Urine Leukocyte Esterase 3+H, Urine WBC (Auto) TNTCH, Urine RBC (Auto) TNTCH, Urine Hyaline Casts (Auto) 0, Urine Bacteria (Auto) 1+H, Urine Squamous Epithelial Cells 0, Urine Amorphous Sediment SMALLH, Urine Mucus (Auto) SMALL, Urine Sperm (Auto) , Lactic Acid Level 2.3*H, Magnesium Level 2.2, Aspartate Amino Transf (AST/SGOT) 15, Alanine Aminotransferase (ALT/SGPT) 28, Alkaline Phosphatase 94, Total Bilirubin 0.5, Direct Bilirubin 0.2, Total Protein 6.8, Albumin 3.5, Albumin/Globulin Ratio 1.06, Lipase 101 11/09/18 18:37: POC Glucose (Misc Panel) 130H, POC Sodium (Misc Panel) 142, POC Potassium (Misc Panel) 4.9, POC Chloride (Misc Panel) 107, POC Total CO2 (Misc Panel) 24.0, POC Blood Urea Nitrogen (Misc Panel 34H, POC Ionized Calcium (Misc Panel) 4.8, POC Creatinine (Misc Panel) 1.8H, POC Hematocrit (Misc Panel) 37.0L 11/10/18 00:02: Lactic Acid Followup at 4 Hours 2.0 11/10/18 08:13: Nucleated Red Blood Cells % (auto) 0.0, Magnesium Level 2.0, Aspartate Amino Transf (AST/SGOT) 10, Alanine Aminotransferase (ALT/SGPT) 22, Alkaline Phosphatase 76, Total Bilirubin 0.6, Total Protein 6.2L, Albumin 2.8L, Albumin/Globulin Ratio 0.82L, Anion Gap 4L, Glomerular Filtration Rate 54.3, Blood Urea Nitrogen 27H, Creatinine 1.35H, Sodium Level 145, Potassium Level 4.3, Chloride Level 117H, Carbon Dioxide Level 24, Calcium Level 8.4L CBC/BMP Laboratory Tests 11/09/18 17:49 Red Blood Count 4.25 L, Mean Corpuscular Volume 92.9, Mean Corpuscular Hemoglobin 30.1, Mean Corpuscular Hemoglobin Concent 32.4, Red Cell Distribution Width 13.8, Neutrophils (%) (Auto) 56.3, Lymphocytes (%) (Auto) 28.9, Monocytes (%) (Auto) 8.5 H, Eosinophils (%) (Auto) 4.3 H, Basophils (%) (Auto) 0.5, Neutrophils # (Auto) 4.1, Lymphocytes # (Auto) 2.1, Monocytes # (Auto) 0.6, Eosinophils # (Auto) 0.3, Basophils # (Auto) 0.0 11/10/18 08:13 Red Blood Count 3.90 L, Mean Corpuscular Volume 91.8, Mean Corpuscular Hemoglobin 29.5, Mean Corpuscular Hemoglobin Concent 32.1, Red Cell Distribution Width 13.6, Calcium Level 8.4 L, Aspartate Amino Transf (AST/SGOT) 10, Alanine Aminotransferase (ALT/SGPT) 22, Alkaline Phosphatase 76, Total Bilirubin 0.6, Total Protein 6.2 L, Albumin 2.8 L Microbiology Microbiology 11/09/18 Blood Culture, Received Pending 11/09/18 Blood Culture, Received Pending 11/09/18 Urine Culture, Received Pending SAMANTHA ESTES MD Nov 10, 2018 09:14
--- NOTE | 2018-11-10 13:30 | IPNPDOC ---
Text Note Date of Service The patient was seen on 11/10/18. NOTE Patient without any complaints overnight. Physical exam: He does have dementia by seems to do better at times. He still has no CVA tenderness. His abdomen is soft and nontender. He has no calf tenderness. Impression: -Bilateral distal ureteral stones with left hydroureteronephrosis and a urinalysis shows too numerous to count both red and white blood cells with gross hematuria and recurrent urinary tract infections with Proteus -Dementia and other medical issues including bowel and bladder incontinence Plan: -Schedule cystoscopy with bilateral ureteroscopy, laser lithotripsy, and stent placement since he has been on meropenem now and remains afebrile with a normal white blood count but if he at all becomes unstable I will just place stents today VS,Alejandro, I+O VS, Alejandro, I+O Laboratory Tests 11/09/18 17:49 Red Blood Count 4.25 L, Mean Corpuscular Volume 92.9, Mean Corpuscular Hemoglobin 30.1, Mean Corpuscular Hemoglobin Concent 32.4, Red Cell Distribution Width 13.8, Neutrophils (%) (Auto) 56.3, Lymphocytes (%) (Auto) 28.9, Monocytes (%) (Auto) 8.5 H, Eosinophils (%) (Auto) 4.3 H, Basophils (%) (Auto) 0.5, Neutrophils # (Auto) 4.1, Lymphocytes # (Auto) 2.1, Monocytes # (Auto) 0.6, Eosinophils # (Auto) 0.3, Basophils # (Auto) 0.0 11/10/18 08:13 Red Blood Count 3.90 L, Mean Corpuscular Volume 91.8, Mean Corpuscular Hemoglobin 29.5, Mean Corpuscular Hemoglobin Concent 32.1, Red Cell Distribution Width 13.6, Calcium Level 8.4 L, Aspartate Amino Transf (AST/SGOT) 10, Alanine Aminotransferase (ALT/SGPT) 22, Alkaline Phosphatase 76, Total Bilirubin 0.6, Total Protein 6.2 L, Albumin 2.8 L Vital Signs Date Time Temp Pulse Resp B/P (MAP) Pulse Ox O2 Delivery O2 Flow Rate FiO2 11/10/18 09:59 63 143/62 11/10/18 06:00 96.9 18 96 11/09/18 22:50 Room Air I&O- Last 24 Hours up to 6 AM 11/10/18 06:00 Intake Total 1450 ml Output Total 700 ml Balance 750 ml BRIAN STRONG MD Nov 10, 2018 13:30
[2018-11-10] MEDS: NS 1,000 ML IV SCH (13:35)
--- NOTE | 2018-11-10 14:07 | CR ---
DATE OF CONSULTATION: 11/09/2018 The patient was seen at 09:30 p.m. REASON FOR CONSULTATION: Bilateral distal ureteral stones complicated by gross hematuria and urinary tract infections. HISTORY OF PRESENT ILLNESS: The patient is a 78-year-old gentleman with advanced dementia who lives at [facility] who was originally seen in the Urology Clinic by MELANI Zaidi, on 11/05/2018 for evaluation of hematuria. It sounds like he had gross hematuria and a urine cytology was done which showed no malignancy. It sounds like he has had several Proteus urinary tract infections also. Valerie ordered a CT scan of the abdomen and pelvis and this showed left hydroureteronephrosis and hydroureter to a 9 mm distal ureteral stone at the level of the ureterovesical junction. Surprisingly, there was no right hydroureter or hydroureteronephrosis, but there was also an 8 mm stone seen in the distal right ureter also at the ureterovesical junction. It sounds like when they were told about these findings, [facility] sent him to the emergency room. In the emergency room, his creatinine was found to be slightly elevated from the day before 1.8, but that sounds like baseline for him. It was decided that because his urinalysis showed too numerous to count white and red blood cells that he would be admitted for more definitive management. Originally, I was going to give him IV fluids and see if he could pass the stones, but we decided that we would be better off treating him so that we could get him back to his normal environment. It sounds like he has had difficulty urinating for years and that he is incontinent of feces and urine in a diaper. He did pass one kidney stones according to his many years ago. PAST MEDICAL HISTORY: Dementia, gout, high blood pressure, history of venous thrombosis and emboli, cellulitis of his left toe, atrial fibrillation, type 2 diabetes, full incontinence of feces and urine, and an enlarged prostate with LUTS. PAST SURGICAL HISTORY: He did have litholapaxy of a large stone in the past. They really do not know the exact history and I do not see any old records in our system. ALLERGIES: No known drug allergies. REVIEW OF SYSTEMS: This is really unobtainable because the patient is a poor historian, but most of this is in the history of present illness (HPI). PHYSICAL EXAMINATION: This is a well-developed, well-nourished gentleman in no apparent respiratory distress. He is alert, but not oriented to person, place or time. He actually is able to converse though and answer some questions, but tends to repeat himself quite a bit. His T-max was 96.9. His pulse was 63. His blood pressure was 145/70 and his respiratory rate was 18. His head was normocephalic, atraumatic. His trachea was midline. He had no significant supraclavicular or cervical adenopathy. He had no costovertebral angle (CVA) tenderness on exam and his abdomen was soft and nontender without any rebound or guarding. His extremities showed no cyanosis, clubbing or edema. LABORATORY DATA: His white blood count is 7.4, H/H 04/13 over 39.5. His creatinine was 1.8, done the day prior. Urinalysis showed too numerous to count white blood cells and red blood cells. A urine culture is still pending. IMAGING STUDIES: A CT scan of the abdomen and pelvis with contrast on 11/09/2018 again shows left hydroureteronephrosis and hydroureter to a 9 mm distal stone at the ureterovesical junction (UVJ) without any other stones seen in the kidney. There is also no right hydroureteronephrosis, but there is an 8 mm distal ureteral calculus at the ureterovesical junction. There is no kidney stone seen on either side and no bladder stones. DISCUSSION: I discussed these findings at length with Dusty's who is his medical proxy and son. Originally, we were going to see if he could possibly pass the stone, but because of the size it was decided to bring him to the operating room for more definitive management. All options, alternatives, risks, and benefits were discussed. We discussed exactly how the procedure is done and what to expect both pre and post procedurally. We discussed the major risks of the procedure which included but was not limited to the risks of general anesthesia, reactions to medication, bleeding, infection, inability to place the stones, ureteral injury and inability to place the stents requiring nephrostomy tube placement. At this point, informed consent was obtained by the and signed. IMPRESSION: 1. Bilateral distal ureteral calculus on the left measuring 9 mm and on the right 8 mm with left hydroureteronephrosis in a patient who has had gross hematuria and urinary tract infections, now with too numerous to count white and red blood cells. 2. Patient with dementia who lives at [facility] who is incontinent of stool and urine. 3. Other medical problems including, but not limited to dementia, atrial fibrillation, high blood pressure, benign prostatic hypertrophy (BPH), and a history of deep vein thrombosis and embolus. PLAN: Bring the patient to the operating room for bilateral ureteroscopy, bilateral laser lithotripsy and bilateral stent placement today. If there appears to be infection though, then bilateral stents will be placed and the stones may need to be taken care of at another sitting.
[2018-11-10] MEDS ORDERED: CONRAY-60 60% 50ML VIAL (Q9961) As Ordered ONE (15:16)
[2018-11-10] MEDS ORDERED: ONDANSETRON 4MG/2ML VIAL (J2405) As Ordered ONE (17:41)
[2018-11-10] MEDS ORDERED: MIDAZOLAM INJ 2 MG/2 ML VIAL (J2250) As Ordered ONE (17:41)
[2018-11-10] MEDS ORDERED: dexameTHASONE 4 MG/ML 1ML VIAL (J1100) As Ordered ONE (17:41)
[2018-11-10] MEDS ORDERED: fentaNYL 100 MCG/2 ML INJECTION (J3010) As Ordered ONE ×2 (17:41→18:02)
[2018-11-10] MEDS ORDERED: PROPOFOL 200 MG/20 ML VIAL As Ordered ONE (17:41)
[2018-11-10] MEDS ORDERED: METHYLENE BLUE 0.5% (5MG/ML) 10 ML AMP (PROVAYBLUE)(Q9968 PER 1MG) As Ordered ONE (17:44)
[2018-11-10] MEDS ORDERED: ePHEDrine SULFATE 25 MG/5 ML(5MG/ML) SYRINGE As Ordered ONE (18:13)
[2018-11-10] MEDS ORDERED: PHENYLephrine HCL 500 MCG/5 ML (100MCG/ML) SYRINGE (J2370) As Ordered ONE (18:13)
[2018-11-10] MEDS ORDERED: VASOPRESSIN INJ 20 UNITS/ML VIAL As Ordered ONE (18:25)
[2018-11-10] MEDS ORDERED: ONDANSETRON 4MG/2ML VIAL (J2405) IV PRN (19:15)
[2018-11-10] MEDS ORDERED: NORCO, ANEXSIA 5/325MG TABLET (HYDROcodone/ACETAMINOPHEN) PO PRN (19:15)
[2018-11-10] MEDS ORDERED: LR 1,000 ML IV SCH (19:15)
[2018-11-10] MEDS ORDERED: fentaNYL 100 MCG/2 ML INJECTION (J3010) IV PRN (19:15)
[2018-11-10] MEDS: MIRTAZAPINE 15 MG TAB PO SCH (20:21)
[2018-11-10] MEDS: QUEtiapine FUMARATE 100 MG TAB PO SCH (20:21)
[2018-11-11] MEDS: NS 1,000 ML IV SCH ×2 (01:06→11:36)
[2018-11-11 02:00] VITALS: BP 127/66
[2018-11-11 06:00] VITALS: BP 137/63
[2018-11-11 06:32] LABS: HEMATOCRIT 38.2 % (42.0-52.0); HEMOGLOBIN 11.9 g/dl (13.5-17.5); MEAN CORPUSCULAR HGB CONC 31.2 g/dl (32.0-36.5); MEAN CORPUSCULAR VOLUME 93.2 fl (80.0-96.0); PLATELET COUNT, AUTOMATED 148 10^3/uL (150-450); WHITE BLOOD COUNT 12.5 10^3/uL (4.0-10.0)
[2018-11-11 07:03] LABS: CALCIUM LEVEL 8.3 MG/DL (8.8-10.2); CREATININE FOR GFR 1.42 MG/DL (0.70-1.30); GLOMERULAR FILTRATION RATE 51.2 (>42); POTASSIUM SERUM 4.4 MEQ/L (3.5-5.1)
[2018-11-11 08:00] VITALS: BP 137/63
[2018-11-11] MEDS: MEROPENEM INJ 1 GM in APPROPRIATE DILUENT 1 EA IV SCH (08:06)
[2018-11-11] MEDS: CARVedilol 6.25 MG TAB PO SCH ×2 (08:14→22:01)
[2018-11-11] MEDS: LOSARTAN 50 MG TAB PO SCH (08:15)
[2018-11-11] MEDS: QUEtiapine FUMARATE 50 MG TAB PO SCH (08:16)
[2018-11-11] MEDS: QUEtiapine FUMARATE 25 MG TAB PO SCH (08:17)
[2018-11-11] MEDS: VITAMIN D 1,000 INTERNATIONAL UNITS TABLET PO SCH (08:18)
[2018-11-11] MEDS ORDERED: PILL CUTTER 1 EACH XX PRN (08:30)
[2018-11-11] MEDS: amLODIPine 5 MG TAB PO SCH (08:42)
[2018-11-11 10:00] VITALS: BP 119/65
[2018-11-11] MEDS: LevoFLOXacin IV 750 MG in APPROPRIATE DILUENT 1 EA IV SCH (11:36)
--- NOTE | 2018-11-11 15:35 | IPNPDOC ---
Date Seen The patient was seen on 11/11/18. Progress Note SUBJECTIVE: s/p cystoscopy, bilateral laser lithotripsy and stent placement on the left 11/10/18 with slight increase white count and creatinine. urine cx Ecoli sensitive to levaquin. Still requiring as sitter due to acute delirium and sundowning. despite ivfluids,no c/o sob. Family requested restarting on home diet. OBJECTIVE: Physical Examination VITALS: PLS SEE BELOW General Exam: Positive: Cooperative, Mild Distress, Other (anxious) Eye Exam: Positive: PERRLA, Conjunctiva & lids normal ENT Exam: Positive: Atraumatic Neck Exam: Positive: Supple Chest Exam: Positive: Clear to auscultation Heart Exam: Positive: Rate Normal, Normal S1, Normal S2 Abdomen Exam: Positive: Normal bowel sounds, Soft Extremity Exam: Positive: Normal pulses Skin Exam: Positive: Nl turgor and temperature Neuro Exam: Positive: Other (, unable to do exam) Psych Exam: Positive: Anxiety ADMISSION LABORATORY DATA: 11/09/18 17:49: Immature Granulocyte % (Auto) 1.5, White Blood Count 7.4, Red Blood Count 4.25L, Hemoglobin 12.8L, Hematocrit 39.5L, Mean Corpuscular Volume 92.9, Mean Corpuscular Hemoglobin 30.1, Mean Corpuscular Hemoglobin Concent 32.4, Red Cell Distribution Width 13.8, Platelet Count 158, Neutrophils (%) (Auto) 56.3, Lymphocytes (%) (Auto) 28.9, Monocytes (%) (Auto) 8.5H, Eosinophils (%) (Auto) 4.3H, Basophils (%) (Auto) 0.5, Neutrophils # (Auto) 4.1, Lymphocytes # (Auto) 2.1, Monocytes # (Auto) 0.6, Eosinophils # (Auto) 0.3, Basophils # (Auto) 0.0, Nucleated Red Blood Cells % (auto) 0.0, Prothrombin Time 14.3H, Prothromb Time International Ratio 1.14, Activated Partial Thromboplast Time 38.2, Urine Color YELLOW, Urine Appearance TURBIDH, Urine pH 6.0, Urine Specific [place] 1.013, Urine Protein 2+H, Urine Glucose (UA) NEGATIVE, Urine Ketones NEGATIVE, Urine Blood 3+H, Urine Nitrite POSITIVEH, Urine Bilirubin NEGATIVE, Urine Urobilinogen 0.2, Urine Leukocyte Esterase 3+H, Urine WBC (Auto) TNTCH, Urine RBC (Auto) TNTCH, Urine Hyaline Casts (Auto) 0, Urine Bacteria (Auto) 1+H, Urine Squamous Epithelial Cells 0, Urine Amorphous Sediment SMALLH, Urine Mucus (Auto) SMALL, Urine Sperm (Auto) , Lactic Acid Level 2.3*H, Magnesium Level 2.2, Aspartate Amino Transf (AST/SGOT) 15, Alanine Aminotransferase (ALT/SGPT) 28, Alkaline Phosphatase 94, Total Bilirubin 0.5, Direct Bilirubin 0.2, Total Protein 6.8, Albumin 3.5, Albumin/Globulin Ratio 1.06, Lipase 101 11/09/18 18:37: POC Glucose (Misc Panel) 130H, POC Sodium (Misc Panel) 142, POC Potassium (Misc Panel) 4.9, POC Chloride (Misc Panel) 107, POC Total CO2 (Misc Panel) 24.0, POC Blood Urea Nitrogen (Misc Panel 34H, POC Ionized Calcium (Misc Panel) 4.8, POC Creatinine (Misc Panel) 1.8H, POC Hematocrit (Misc Panel) 37.0L CBC/BMP Laboratory Tests 11/09/18 17:49 [Image 0] Red Blood Count 4.25 L, Mean Corpuscular Volume 92.9, Mean Corpuscular Hemoglobin 30.1, Mean Corpuscular Hemoglobin Concent 32.4, Red Cell Distribution Width 13.8, Neutrophils (%) (Auto) 56.3, Lymphocytes (%) (Auto) 28.9, Monocytes (%) (Auto) 8.5 H, Eosinophils (%) (Auto) 4.3 H, Basophils (%) (Auto) 0.5, Neutrophils # (Auto) 4.1, Lymphocytes # (Auto) 2.1, Monocytes # (Auto) 0.6, Eosinophils # (Auto) 0.3, Basophils # (Auto) 0.0 Microbiology Microbiology 11/09/18 Blood Culture, Received Pending 11/09/18 Blood Culture, Received Pending 11/09/18 Urine Culture, Received Pending LABORATORY DATA, IMAGING STUDIES, MICROBIOLOGY: PLS SEE BELOW ASSESSMENT AND PLAN: 78 years old white male who has advanced dementia, resides at [facility] was sent from there with the diagnosis of left-sided renal colic left-sided hydronephrosis and possible 9 mm stone. Urology foreign law consultant was called by ED and was advised to admit patient and patient will be evaluated by urology and in a.m. for any further intervention if needed. Patient has advanced dementia, unable to obtained history from him. History was obtained from omar M.DCorbin at night and from her [facility] records, which were reviewed personally by me ACUTE ISSUES: Renal colic on left side Status: Acute Problem Text: 78 years old white male admitted with the left-sided hydronephrosis, left renal calculi and renal colic Patient does have a history of for renal calculi in the past Admit patient to the medical floor IV fluids normal saline 100 mL per hour Pain management with morphine sulfate 4 mg IV every 4-6 hours when necessary urology consult was called from ED and patient . s/p b/l laser lithotripsy and stent on left 11/10/18 on iv levaquin wiht Ecoli on urine cx s/p meropenem Hydronephrosis Status: Acute Problem Text: Most likely secondary to obstruction IV fluids urology consult was called from ED and patient . s/p b/l laser lithotripsy and stent on left 11/10/18 on iv levaquin wiht Ecoli on urine cx UTI (urinary tract infection) Status: Acute Problem Text: Pt has already been started on Merrem urology consult was called from ED and patient . s/p b/l laser lithotripsy and stent on left 11/10/18 on iv levaquin wiht Ecoli on urine cx s/p meropenem Acute delirium on chronic Dementia, frequent re-orientation requriing a sitter due to acute delirium A. fib, rate controlled resumed rate control meds-coreg hypertension, resumed home meds-on losartan, coreg, norvasc BPH, chronic vitamin D deficiency chronic Plan / VTE VTE Prophylaxis Ordered?: Yes VS, I&O, 24H, Fishbone Vital Signs/I&O Vital Signs Date Time Temp Pulse Resp B/P (MAP) Pulse Ox O2 Delivery O2 Flow Rate FiO2 11/11/18 10:00 97.0 68 24 119/65 (83) 95 11/11/18 08:00 3.0 11/09/18 22:50 Room Air I&O- Last 24 Hours up to 6 AM 11/11/18 05:59 Intake Total 1055 ml Output Total 0 ml Balance 1055 ml Laboratory Data 24H LABS Laboratory Tests 2 11/11/18 05:34: Nucleated Red Blood Cells % (auto) 0.0, Anion Gap 7L, Glomerular Filtration Rate 51.2, Blood Urea Nitrogen 22H, Creatinine 1.42H, Sodium Level 146H, Potassium Level 4.4, Chloride Level 116H, Carbon Dioxide Level 23, Calcium Level 8.3L CBC/BMP Laboratory Tests 11/11/18 05:34 Red Blood Count 4.10 L, Mean Corpuscular Volume 93.2, Mean Corpuscular Hemoglobin 29.0, Mean Corpuscular Hemoglobin Concent 31.2 L, Red Cell Distribution Width 13.7, Calcium Level 8.3 L Microbiology Microbiology 11/09/18 Blood Culture - Preliminary, Resulted No growth after 24 hours . All specim... 11/09/18 Blood Culture - Preliminary, Resulted No growth after 24 hours . All specim... 11/09/18 Urine Culture - Final, Complete Escherichia Coli SAMANTHA ESTES MD Nov 11, 2018 15:34
[2018-11-11] MEDS: diazePAM 5 MG TAB PO PRN (16:54)
[2018-11-11 18:00] VITALS: BP 147/69
[2018-11-11] MEDS ORDERED: diazePAM 5 MG TAB PO ONE (18:30)
[2018-11-11 22:00] VITALS: BP 160/88
[2018-11-11] MEDS: QUEtiapine FUMARATE 100 MG TAB PO SCH (22:00)
[2018-11-11] MEDS: MIRTAZAPINE 15 MG TAB PO SCH (22:00)
[2018-11-12] MEDS: NS 1,000 ML IV SCH ×2 (05:34→20:15)
--- NOTE | 2018-11-12 05:48 | ECGEPIP ---
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
[2018-11-12 06:00] VITALS: BP 150/95
--- NOTE | 2018-11-12 07:28 | IPNPDOC ---
Text Note Date of Service The patient was seen on 11/11/18. NOTE Patient was no longer alert and oriented 3 and was combative. He had been checking postvoid residuals and he was emptying his bladder completely. He had been kept overnight since he still had an elevated creatinine and white blood count of 12.5. Physical exam: He is confused and slightly combative. He doesn't seem to have CVA tenderness or abdominal tenderness. He has no calf swelling. Impression: -Status post left ureteroscopy and laser lithotripsy and bilateral stent placement after no stone was seen on the right hand side in a patient who had gross hematuria and recurrent urinary tract infections now with Escherichia coli Plan: -Continue medical management with antibiotics and patient can be discharged from a urologic standpoint when his labs improved. VS,Fishbone, I+O VS, Fishbone, I+O Vital Signs Date Time Temp Pulse Resp B/P (MAP) Pulse Ox O2 Delivery O2 Flow Rate FiO2 11/12/18 06:00 98.6 88 20 150/95 (113) 95 11/11/18 08:00 3.0 11/09/18 22:50 Room Air I&O- Last 24 Hours up to 6 AM 11/12/18 05:59 Intake Total 2761.5 ml Output Total 0 ml Balance 2761.5 ml BRIAN STRONG MD Nov 12, 2018 07:28
--- NOTE | 2018-11-12 07:51 | REP ---
Retrograde pyelogram: A series of two intraoperative fluoroscopic views are performed during placement of right and left ureteral stents: The proximal stent pigtails are in satisfactory positions. The distal stent pigtail positions are excluded at the inferior film margin. Fluoroscopic exposure time is 24 seconds. Fluoroscopic images are performed with last image hold technique and require no additional radiation. Electronically Signed by Orlando Lou MD 11/11/2018 08:11 A
[2018-11-12] MEDS: LevoFLOXacin IV 750 MG in APPROPRIATE DILUENT 1 EA IV SCH (09:17)
[2018-11-12] MEDS: LOSARTAN 50 MG TAB PO SCH (09:18)
[2018-11-12] MEDS: VITAMIN D 1,000 INTERNATIONAL UNITS TABLET PO SCH (09:18)
[2018-11-12] MEDS: CARVedilol 6.25 MG TAB PO SCH ×2 (09:19→20:15)
[2018-11-12] MEDS: QUEtiapine FUMARATE 25 MG TAB PO SCH (09:19)
[2018-11-12] MEDS: QUEtiapine FUMARATE 50 MG TAB PO SCH (09:19)
[2018-11-12] MEDS: amLODIPine 5 MG TAB PO SCH (09:19)
[2018-11-12 10:22] LABS: BASO % 0.4 % (0.0-1.0); EOS # 0.1 10^3/uL (0.0-0.50); EOS % 0.6 % (0.0-3.0); HEMATOCRIT 35.3 % (42.0-52.0); HEMOGLOBIN 11.4 g/dl (13.5-17.5); LYMPH % 11.6 % (24.0-44.0); MEAN CORPUSCULAR HGB CONC 32.3 g/dl (32.0-36.5); MEAN CORPUSCULAR VOLUME 92.9 fl (80.0-96.0); MONO # 0.7 10^3/uL (0.0-0.8); MONO % 8.3 % (0.0-5.0); NEUTROPHILS # 6.6 10^3/uL (1.8-7.7); NEUTROPHILS % 78.3 % (36.0-66.0); PLATELET COUNT, AUTOMATED 125 10^3/uL (150-450); WHITE BLOOD COUNT 8.4 10^3/uL (4.0-10.0)
[2018-11-12 10:52] LABS: ALBUMIN 2.8 GM/DL (3.2-5.2); BILIRUBIN,TOTAL 0.6 MG/DL (0.2-1.0); CALCIUM LEVEL 8.2 MG/DL (8.8-10.2); CREATININE FOR GFR 1.39 MG/DL (0.70-1.30); GLOMERULAR FILTRATION RATE 52.5 (>42); TOTAL PROTEIN 5.8 GM/DL (6.4-8.2)
--- NOTE | 2018-11-12 11:12 | IPNPDOC ---
Text Note Date of Service The patient was seen on 11/12/18. NOTE Pt has been afebrile and wbc down to normal. Creat still pending. PE: No CVAT, no calf swelling or tenderness, abdomen soft Impression/Plan: May discharge from standpt when stable on antibiotics Pt to f/u in office for cystoscopy and bilateral ureteral stent removal VS,Fishbone, I+O VS, Fishbone, I+O Laboratory Tests 11/12/18 10:09 Red Blood Count 3.80 L, Mean Corpuscular Volume 92.9, Mean Corpuscular Hemoglobin 30.0, Mean Corpuscular Hemoglobin Concent 32.3, Red Cell Distribution Width 13.6, Neutrophils (%) (Auto) 78.3 H, Lymphocytes (%) (Auto) 11.6 L, Monocytes (%) (Auto) 8.3 H, Eosinophils (%) (Auto) 0.6, Basophils (%) (Auto) 0.4, Neutrophils # (Auto) 6.6, Lymphocytes # (Auto) 1.0 L, Monocytes # (Auto) 0.7, Eosinophils # (Auto) 0.1, Basophils # (Auto) 0.0, Calcium Level 8.2 L, Aspartate Amino Transf (AST/SGOT) 20, Alanine Aminotransferase (ALT/SGPT) 20, Alkaline Phosphatase 79, Total Bilirubin 0.6, Total Protein 5.8 L, Albumin 2.8 L Vital Signs Date Time Temp Pulse Resp B/P (MAP) Pulse Ox O2 Delivery O2 Flow Rate FiO2 11/12/18 09:19 64 156/78 11/12/18 06:00 98.6 20 95 11/11/18 08:00 3.0 11/09/18 22:50 Room Air I&O- Last 24 Hours up to 6 AM 11/12/18 06:00 Intake Total 2761.5 ml Output Total 0 ml Balance 2761.5 ml BRIAN STRONG MD Nov 12, 2018 11:12
[2018-11-12 14:00] VITALS: BP 95/58
--- NOTE | 2018-11-12 15:32 | IPNPDOC ---
Date Seen The patient was seen on 11/12/18. Progress Note SUBJECTIVE: s/p cystoscopy, bilateral laser lithotripsy and stent placement on the left 11/10/18 . CLEARED by urology for hospital discharge. awaiting physical therapy evaluation. Pt had severe agitation yesterday requiring additional valium. this morning, he denies sob despite ivfluids given two days ago. no c/o pain . urine cx reviewed.pt is afebrile no chills. OBJECTIVE: Physical Examination VITALS: PLS SEE BELOW General Exam: Positive: Cooperative, Mild Distress, Other (anxious) Eye Exam: Positive: PERRLA, Conjunctiva & lids normal ENT Exam: Positive: Atraumatic Neck Exam: Positive: Supple Chest Exam: Positive: Clear to auscultation Heart Exam: Positive: Rate Normal, Normal S1, Normal S2 Abdomen Exam: Positive: Normal bowel sounds, Soft Extremity Exam: Positive: Normal pulses Skin Exam: Positive: Nl turgor and temperature Neuro Exam: Positive: Other (, unable to do exam) Psych Exam: Positive: Anxiety ADMISSION LABORATORY DATA: 11/09/18 17:49: Immature Granulocyte % (Auto) 1.5, White Blood Count 7.4, Red Blood Count 4.25L, Hemoglobin 12.8L, Hematocrit 39.5L, Mean Corpuscular Volume 92.9, Mean Corpuscular Hemoglobin 30.1, Mean Corpuscular Hemoglobin Concent 32.4, Red Cell Distribution Width 13.8, Platelet Count 158, Neutrophils (%) (Auto) 56.3, Lymphocytes (%) (Auto) 28.9, Monocytes (%) (Auto) 8.5H, Eosinophils (%) (Auto) 4.3H, Basophils (%) (Auto) 0.5, Neutrophils # (Auto) 4.1, Lymphocytes # (Auto) 2.1, Monocytes # (Auto) 0.6, Eosinophils # (Auto) 0.3, Basophils # (Auto) 0.0, Nucleated Red Blood Cells % (auto) 0.0, Prothrombin Time 14.3H, Prothromb Time International Ratio 1.14, Activated Partial Thromboplast Time 38.2, Urine Color YELLOW, Urine Appearance TURBIDH, Urine pH 6.0, Urine Specific [place] 1.013, Urine Protein 2+H, Urine Glucose (UA) NEGATIVE, Urine Ketones NEGATIVE, Urine Blood 3+H, Urine Nitrite POSITIVEH, Urine Bilirubin NEGATIVE, Urine Urobilinogen 0.2, Urine Leukocyte Esterase 3+H, Urine WBC (Auto) TNTCH, Urine RBC (Auto) TNTCH, Urine Hyaline Casts (Auto) 0, Urine Bacteria (Auto) 1+H, Urine Squamous Epithelial Cells 0, Urine Amorphous Sediment SMALLH, Urine Mucus (Auto) SMALL, Urine Sperm (Auto) , Lactic Acid Level 2.3*H, Magnesium Level 2.2, Aspartate Amino Transf (AST/SGOT) 15, Alanine Aminotransferase (ALT/SGPT) 28, Alkaline Phosphatase 94, Total Bilirubin 0.5, Direct Bilirubin 0.2, Total Protein 6.8, Albumin 3.5, Albumin/Globulin Ratio 1.06, Lipase 101 11/09/18 18:37: POC Glucose (Misc Panel) 130H, POC Sodium (Misc Panel) 142, POC Potassium (Misc Panel) 4.9, POC Chloride (Misc Panel) 107, POC Total CO2 (Misc Panel) 24.0, POC Blood Urea Nitrogen (Misc Panel 34H, POC Ionized Calcium (Misc Panel) 4.8, POC Creatinine (Misc Panel) 1.8H, POC Hematocrit (Misc Panel) 37.0L CBC/BMP Laboratory Tests 11/09/18 17:49 [Image 0] Red Blood Count 4.25 L, Mean Corpuscular Volume 92.9, Mean Corpuscular Hemoglobin 30.1, Mean Corpuscular Hemoglobin Concent 32.4, Red Cell Distribution Width 13.8, Neutrophils (%) (Auto) 56.3, Lymphocytes (%) (Auto) 28.9, Monocytes (%) (Auto) 8.5 H, Eosinophils (%) (Auto) 4.3 H, Basophils (%) (Auto) 0.5, Neutrophils # (Auto) 4.1, Lymphocytes # (Auto) 2.1, Monocytes # (Auto) 0.6, Eosinophils # (Auto) 0.3, Basophils # (Auto) 0.0 Microbiology Microbiology 11/09/18 Blood Culture, Received Pending 11/09/18 Blood Culture, Received Pending 11/09/18 Urine Culture, Received Pending LABORATORY DATA, IMAGING STUDIES, MICROBIOLOGY: PLS SEE BELOW ASSESSMENT AND PLAN: 78 years old white male who has advanced dementia, resides at [facility] was sent from there with the diagnosis of left-sided renal colic left-sided hydronephrosis and possible 9 mm stone. Urology reservation sales agent was called by ED and was advised to admit patient and patient will be evaluated by urology and in a.m. for any further intervention if needed. Patient has advanced dementia, unable to obtained history from him. History was obtained from covering M.D. at night and from her half-way records, which were reviewed personally by me ACUTE ISSUES: Renal colic on left side Status: Acute Problem Text: 78 years old white male admitted with the left-sided hydronephrosis, left renal calculi and renal colic Patient does have a history of for renal calculi in the past Admit patient to the medical floor IV fluids normal saline 100 mL per hour Pain management with morphine sulfate 4 mg IV every 4-6 hours when necessary urology consult was called from ED and patient . s/p b/l laser lithotripsy and stent on left 11/10/18 on iv levaquin wiht Ecoli on urine cx s/p meropenem Hydronephrosis Status: Acute Problem Text: Most likely secondary to obstruction IV fluids urology consult was called from ED and patient . s/p b/l laser lithotripsy and stent on left 11/10/18 on iv levaquin wiht Ecoli on urine cx UTI (urinary tract infection) Status: Acute Problem Text: Pt has already been started on Merrem urology consult was called from ED and patient . s/p b/l laser lithotripsy and stent on left 11/10/18 on iv levaquin wiht Ecoli on urine cx s/p meropenem Acute delirium on chronic Dementia, frequent re-orientation requriing a sitter due to acute delirium A. fib, rate controlled resumed rate control meds-coreg hypertension, resumed home meds-on losartan, coreg, norvasc BPH, chronic vitamin D deficiency chronic Plan / VTE VTE Prophylaxis Ordered?: Yes disposition: CLEARED by urology for hospital discharge. awaiting physical therapy evaluation. VS, I&O, 24H, Fishbone Vital Signs/I&O Vital Signs Date Time Temp Pulse Resp B/P (MAP) Pulse Ox O2 Delivery O2 Flow Rate FiO2 11/12/18 09:19 64 156/78 11/12/18 06:00 98.6 20 95 11/11/18 08:00 3.0 11/09/18 22:50 Room Air I&O- Last 24 Hours up to 6 AM 11/12/18 05:59 Intake Total 2761.5 ml Output Total 0 ml Balance 2761.5 ml Laboratory Data 24H LABS Laboratory Tests 2 11/12/18 10:09: Immature Granulocyte % (Auto) 0.8, White Blood Count 8.4, Red Blood Count 3.80L, Hemoglobin 11.4L, Hematocrit 35.3L, Mean Corpuscular Volume 92.9, Mean Corpuscular Hemoglobin 30.0, Mean Corpuscular Hemoglobin Concent 32.3, Red Cell Distribution Width 13.6, Platelet Count 125L, Neutrophils (%) (Auto) 78.3H, Lymphocytes (%) (Auto) 11.6L, Monocytes (%) (Auto) 8.3H, Eosinophils (%) (Auto) 0.6, Basophils (%) (Auto) 0.4, Neutrophils # (Auto) 6.6, Lymphocytes # (Auto) 1.0L, Monocytes # (Auto) 0.7, Eosinophils # (Auto) 0.1, Basophils # (Auto) 0.0, Nucleated Red Blood Cells % (auto) 0.0, Anion Gap 6L, Glomerular Filtration Rate 52.5, Blood Urea Nitrogen 20H, Creatinine 1.39H, Sodium Level 144, Potassium Level 4.0, Chloride Level 115H, Carbon Dioxide Level 23, Calcium Level 8.2L, Aspartate Amino Transf (AST/SGOT) 20, Alanine Aminotransferase (ALT/SGPT) 20, Alkaline Phosphatase 79, Total Bilirubin 0.6, Total Protein 5.8L, Albumin 2.8L, Albumin/Globulin Ratio 0.93L CBC/BMP Laboratory Tests 11/12/18 10:09 Red Blood Count 3.80 L, Mean Corpuscular Volume 92.9, Mean Corpuscular Hemoglobin 30.0, Mean Corpuscular Hemoglobin Concent 32.3, Red Cell Distribution Width 13.6, Neutrophils (%) (Auto) 78.3 H, Lymphocytes (%) (Auto) 11.6 L, Monocytes (%) (Auto) 8.3 H, Eosinophils (%) (Auto) 0.6, Basophils (%) (Auto) 0.4, Neutrophils # (Auto) 6.6, Lymphocytes # (Auto) 1.0 L, Monocytes # (Auto) 0.7, Eosinophils # (Auto) 0.1, Basophils # (Auto) 0.0, Calcium Level 8.2 L, Aspartate Amino Transf (AST/SGOT) 20, Alanine Aminotransferase (ALT/SGPT) 20, Alkaline Phosphatase 79, Total Bilirubin 0.6, Total Protein 5.8 L, Albumin 2.8 L Microbiology Microbiology 11/09/18 Blood Culture - Preliminary, Resulted No Growth after 48 hours. All Specime... 11/09/18 Blood Culture - Preliminary, Resulted No Growth after 48 hours. All Specime... 11/09/18 Urine Culture - Final, Complete Escherichia Coli SAMANTHA ESTES MD Nov 12, 2018 15:32
[2018-11-12 16:00] VITALS: BP 140/78
--- NOTE | 2018-11-12 17:24 | RO ---
DATE OF PROCEDURE: 11/10/2018 PREOPERATIVE DIAGNOSIS: Bilateral distal ureteral stones with gross hematuria and recurrent urinary tract infections. POSTOPERATIVE DIAGNOSIS: Only left ureteral stone was seen and no stone was seen in the distal right ureter, but there was quite a lot of debris and small stone fragments in the bladder. PROCEDURE: Cystoscopy, bilateral ureteroscopy, left laser lithotripsy and bilateral ureteral stent placement. SURGEON: Cathie Kothari MD SUPERVISOR FINISHING DEPARTMENT: ANESTHESIA: General. SPECIMENS: None. FINDINGS: Complete white out in the bladder with very purulent urine, very large distal left stone and no stone appreciated on the right side, just some narrowing at the distal ureter. MEDICATIONS: Meropenem. INDICATIONS FOR PROCEDURE: The patient is a 78-year-old gentleman who was having recurrent urinary tract infections and gross hematuria. A CT scan was ordered, and this showed left hydroureteronephrosis with a 9 mm ureterovesical junction stone and an 8 mm distal right ureteral stone also at the ureterovesical junction but without hydroureteronephrosis. The patient is demented and lives at [facility], but was sent to the emergency room. At this point, it was decided to take care of him definitively, and it was decided to bring him to the operating room. I discussed this at length with his and son. We discussed all different options, alternatives, risks, and benefits. We discussed exactly how the procedure was done and what to expect both pre and postprocedurally. We discussed the major risks of the procedure, which included but was not limited to the risks of general anesthesia, reactions to medication, bleeding, infection, inability to remove the stones, ureteral injury, discomfort from the stents, and need for the stents to be removed postprocedurally. The signed the consent. DESCRIPTION OF PROCEDURE: The patient was brought into the operating room and sequential compression devices and thromboembolism deterrents (SHANNA) stockings were in place. General anesthesia was induced. He was then placed in the lithotomy position and careful attention was paid that his pressure points were well-padded and protected. A #21-[place]i cystoscope was inserted. The urethra was noted to be open without any evidence of lesions or strictures. There was some mild to moderate prostatic hypertrophy with a 2-1/2 cm prostatic urethra. Upon entering the bladder, both ureteral orifices were seen. At this point, there were no fragments seen in the bladder. First, I tried to place the wire up the left ureteral orifice but was unable to pass over the stone. I therefore passed an open-ended catheter and did a retrograde pyelogram and then tried to manipulate this past the stone, which I eventually was able to do. A wire was left as a safety wire, and a ureteroscope was then placed. A distal stone was seen, and this was quite long in length. Using a laser fiber, the stone was then dusted in all very small fragments and was completely pulverized. At this point, a #6-[place] universal double-J ureteral stent was placed with a good curl seen up in the left renal pelvis and in the bladder. Next, attention was paid to the right-hand side. A 0.035 guidewire was placed, and a retrograde pyelogram was done. This showed some very narrowing of the distal ureter. At this point, a ureteroscope was passed, and I did not appreciate any stones. I went all the way up to the renal pelvis on the right-hand side and came back very slowly past the narrowed area in the ureter, the distal area was quite capacious, but I was very careful to look around to make sure that no stones were hiding but did not appreciate anything. At this point, because I had put in a rigid ureteroscope, I decided to place a stent. A #6-[place] double-J ureteral stent was placed with an excellent curl in the right renal pelvis and down into the bladder. The patient tolerated the procedure well and was returned to the recovery room in stable condition. I called his to discuss the operative findings.
[2018-11-12] MEDS: QUEtiapine FUMARATE 100 MG TAB PO SCH (20:14)
[2018-11-12] MEDS: MIRTAZAPINE 15 MG TAB PO SCH (20:15)
[2018-11-12 22:00] VITALS: BP 130/68
[2018-11-13 06:00] VITALS: BP 120/70
[2018-11-13] MEDS: VITAMIN D 1,000 INTERNATIONAL UNITS TABLET PO SCH (08:34)
[2018-11-13] MEDS: QUEtiapine FUMARATE 50 MG TAB PO SCH (08:34)
[2018-11-13] MEDS: LOSARTAN 50 MG TAB PO SCH (08:34)
[2018-11-13] MEDS: CARVedilol 6.25 MG TAB PO SCH ×2 (08:34→20:10)
[2018-11-13] MEDS: amLODIPine 5 MG TAB PO SCH (08:34)
[2018-11-13] MEDS: QUEtiapine FUMARATE 25 MG TAB PO SCH (08:35)
[2018-11-13 09:58] VITALS: BP 151/90
[2018-11-13] MEDS: LevoFLOXacin IV 750 MG in APPROPRIATE DILUENT 1 EA IV SCH (10:25)
[2018-11-13] MEDS: NS 1,000 ML IV SCH (10:25)
[2018-11-13 12:30] LABS: HEMATOCRIT 34.6 % (42.0-52.0); HEMOGLOBIN 10.9 g/dl (13.5-17.5); MEAN CORPUSCULAR HEMOGLOBIN 29.4 pg (27.0-33.0); MEAN CORPUSCULAR HGB CONC 31.5 g/dl (32.0-36.5); MEAN CORPUSCULAR VOLUME 93.3 fl (80.0-96.0); PLATELET COUNT, AUTOMATED 118 10^3/uL (150-450); RED BLOOD COUNT 3.71 10^6/uL (4.30-6.10); WHITE BLOOD COUNT 6.8 10^3/uL (4.0-10.0)
[2018-11-13 12:54] LABS: CALCIUM LEVEL 8.2 MG/DL (8.8-10.2); CREATININE FOR GFR 1.31 MG/DL (0.70-1.30); GLOMERULAR FILTRATION RATE 56.2 (>42); POTASSIUM SERUM 3.7 MEQ/L (3.5-5.1)
[2018-11-13 14:02] VITALS: BP 148/81
[2018-11-13] MEDS: diazePAM 5 MG TAB PO PRN (15:42)
--- NOTE | 2018-11-13 18:41 | IPNPDOC ---
Text Note Date of Service The patient was seen on 11/13/18. NOTE Subjective: Patient has no acute overnight events. Patient states he is feeling well and is working with PT today. Good appetite. He denies fevers, chills, cough, wheezing, chest pain, palpitations, abd pain, n/v/d, focal edema or weakness. 10 point ROS done and negative except as listed above. Objective Vital signs: see below GEN: overweight male , NAD, resting in bed HEENT: MMM, EOMI, no pallor, no tongue swelling, no airway compromise Cardio: S1/s2 present, RRR Lungs: CTA b/l, good air entry, no wheezing Abd: soft, nt, nd, bs present, no rebound or guarding present. Neuro: A&Ox1-2 although difficult to assess as he is not answering questions, appears confused. Psych: Normal mood and affect 78 years old white male who has advanced dementia, resides at [facility] was sent from there, admitted with left-sided renal colic left-sided obstructive hydronephrosis and possible 9 mm stone with UTI. Now s/p Laser lithotripsy on left and b/l stent placement by urology. Left sided obstructive hydronephrosis with UTI 2/2 stone -Renal colic improved s/p Lithotripsy and b/l stent placement on 11/10 by Urology. Cleared from urology for d/c back to NH if labs improve. -IVF hydration with NS at 75cc/hr -On Levaquin for E. Coli should complete 14 day course. (sensitive per U Cx 11/09). -Urology consult appreciated MARKO vs CKD -not improving with IVF hydration, possibly CKD now. Will monitor. Acute delirium on chronic dementia -1:1 for safety. Frequent reorientation HTN: Continue home medications. Coreg, Amlodipine 5, Losartan 50 A. Fib: rate controlled, restart Eliquis 2.5mg BID. BPH: continue home medications Vitamin D Def: continue supplementation DVT ppx: restarted eliquis Disposition: no further Urology work up planned, can be discharged with office follow up for cystoscopy and stent removal. Rehab evaluation not needed per PT interdisciplinary rounds, will likely be able to be discharged tomorrow. Vital Signs Date Time Temp Pulse Resp B/P (MAP) Pulse Ox O2 Delivery O2 Flow Rate FiO2 11/13/18 14:02 98.8 56 18 148/81 (103) 93 11/13/18 09:58 98.7 69 151/90 (110) 93 11/13/18 06:00 96.9 59 18 120/70 (87) 95 11/12/18 22:00 97.2 63 18 130/68 (88) 97 11/12/18 20:15 68 150/78 Intake & Output 11/13/18 06:00 Intake Total 1630 ml Output Total 0 ml Balance 1630 ml Laboratory Tests 11/13/18 12:15: White Blood Count 6.8, Red Blood Count 3.71L, Hemoglobin 10.9L, Hematocrit 34.6L, Mean Corpuscular Volume 93.3, Mean Corpuscular Hemoglobin 29.4, Mean Corpuscular Hemoglobin Concent 31.5L, Red Cell Distribution Width 13.6, Platelet Count 118L, Nucleated Red Blood Cells % (auto) 0.0, Blood Urea Nitrogen 20H, Creatinine 1.31H, Sodium Level 143, Potassium Level 3.7, Chloride Level 114H, Carbon Dioxide Level 24, Calcium Level 8.2L, Anion Gap 5L, Glomerular Filtration Rate 56.2, Fasting Glucose 114H Microbiology 11/09/18 Urine Culture - Final, Complete Escherichia Coli Current Medications Medications (Trade) Dose Ordered Sig/Paul Route PRN Reason Start Time Stop Time Status Last Admin Dose Admin Acetaminophen (Tylenol Tab) 650 mg Q4H PRN PO PAIN OR FEVER 11/09/18 20:30 11/11/18 16:40 650 MG Amlodipine Besylate (Norvasc) 5 mg DAILY PO 11/10/18 09:00 11/13/18 08:34 5 MG Carvedilol (COReg) 6.25 mg BID PO 11/09/18 21:00 11/13/18 08:34 6.25 MG Diazepam (Valium) 5 mg Q6HP PRN PO ANXIETY 11/09/18 21:30 11/13/18 15:42 5 MG Levofloxacin 750 mg/IV Miscellaneous Supplies 150 ml @ 100 mls/hr Q24H IV 11/11/18 10:00 11/13/18 10:25 100 MLS/HR Losartan Potassium (Cozaar) 50 mg DAILY PO 11/10/18 09:00 11/13/18 08:34 50 MG Mirtazapine (Remeron) 15 mg QHS PO 11/09/18 21:00 11/12/18 20:15 15 MG Quetiapine Fumarate (SEROquel) 100 mg QHS PO 11/09/18 21:00 11/12/18 20:14 100 MG Sodium Chloride 1,000 ml @ 70 mls/hr [id number] IV 11/09/18 20:30 11/13/18 10:25 70 MLS/HR Vitamin D (Vitamin D) 1,000 units DAILY PO 11/10/18 09:00 11/13/18 08:34 1,000 UNITS VS,Fishbone, I+O VS, Fishbone, I+O Laboratory Tests 11/13/18 12:15 Red Blood Count 3.71 L, Mean Corpuscular Volume 93.3, Mean Corpuscular Hemoglo bin 29.4, Mean Corpuscular Hemoglobin Concent 31.5 L, Red Cell Distribution Width 13.6, Calcium Level 8.2 L Vital Signs Date Time Temp Pulse Resp B/P (MAP) Pulse Ox O2 Delivery O2 Flow Rate FiO2 11/13/18 14:02 98.8 56 18 148/81 (103) 93 11/11/18 08:00 3.0 11/09/18 22:50 Room Air I&O- Last 24 Hours up to 6 AM 11/13/18 06:00 Intake Total 1630 ml Output Total 0 ml Balance 1630 ml NATANAEL RIVAS MD Nov 13, 2018 18:41
[2018-11-13] MEDS: APIXABAN 2.5 MG TAB (ELIQUIS) PO SCH (20:10)
[2018-11-13] MEDS: MIRTAZAPINE 15 MG TAB PO SCH (20:10)
[2018-11-13] MEDS: QUEtiapine FUMARATE 100 MG TAB PO SCH (20:10)
[2018-11-14] MEDS: diazePAM 5 MG TAB PO PRN ×2 (03:29→20:09)
[2018-11-14] MEDS: LORazepam 2 MG/ML VIAL (J2060) IV STA ×2 (03:55→04:03)
[2018-11-14] MEDS: NS 1,000 ML IV SCH ×3 (04:06→20:10)
[2018-11-14] MEDS: QUEtiapine FUMARATE 50 MG TAB PO SCH (08:56)
[2018-11-14] MEDS: APIXABAN 2.5 MG TAB (ELIQUIS) PO SCH ×2 (08:56→20:09)
[2018-11-14] MEDS: amLODIPine 5 MG TAB PO SCH (08:56)
[2018-11-14] MEDS: QUEtiapine FUMARATE 25 MG TAB PO SCH (08:56)
[2018-11-14] MEDS: LOSARTAN 50 MG TAB PO SCH (08:56)
[2018-11-14] MEDS: LevoFLOXacin IV 750 MG in APPROPRIATE DILUENT 1 EA IV SCH (08:56)
[2018-11-14] MEDS: VITAMIN D 1,000 INTERNATIONAL UNITS TABLET PO SCH (08:57)
[2018-11-14] MEDS: CARVedilol 6.25 MG TAB PO SCH ×2 (08:57→20:10)
[2018-11-14 09:11] LABS: HEMATOCRIT 34.6 % (42.0-52.0); MEAN CORPUSCULAR HEMOGLOBIN 29.3 pg (27.0-33.0); MEAN CORPUSCULAR HGB CONC 31.8 g/dl (32.0-36.5); PLATELET COUNT, AUTOMATED 120 10^3/uL (150-450); RED BLOOD COUNT 3.76 10^6/uL (4.30-6.10); WHITE BLOOD COUNT 6.8 10^3/uL (4.0-10.0)
[2018-11-14 09:43] LABS: ALBUMIN 2.6 GM/DL (3.2-5.2); ALT/SGPT 15 U/L (12-78); BILIRUBIN,TOTAL 0.3 MG/DL (0.2-1.0); BLOOD UREA NITROGEN 18 MG/DL (7-18); CALCIUM LEVEL 8.1 MG/DL (8.8-10.2); CARBON DIOXIDE LEVEL 24 MEQ/L (21-32); CHLORIDE LEVEL 116 MEQ/L (98-107); CREATININE FOR GFR 1.21 MG/DL (0.70-1.30); GLOMERULAR FILTRATION RATE > 60.0 (>42); GLUCOSE, FASTING 92 MG/DL (70-100); POTASSIUM SERUM 3.7 MEQ/L (3.5-5.1); SODIUM LEVEL 146 MEQ/L (136-145); TOTAL PROTEIN 5.3 GM/DL (6.4-8.2)
[2018-11-14 14:00] VITALS: BP 141/65
[2018-11-14] MEDS: MIRTAZAPINE 15 MG TAB PO SCH (20:09)
[2018-11-14] MEDS: QUEtiapine FUMARATE 100 MG TAB PO SCH (20:09)
--- NOTE | 2018-11-14 20:58 | IPNPDOC ---
Date Seen The patient was seen on 11/14/18. Progress Note Subjective: Patient is 78 yo m , admitted for admitted with left-sided renal colic left- sided obstructive hydronephrosis and possible 9 mm stone with UTI. Now s/p Laser lithotripsy on left and b/l stent placement by urology.- was agitated this morning and was given ativan. When I saw patient he was very drowsy and said he wasn't feeling well, but could not explain. Objective vital signs stable labs reviewed Physical exam GEN: NAD, resting in bed HEENT: EOMI, no pallor, no discharge from ears or nose, neck supple , no lymphadenopathy Cardio: normal S1/s2 present, RRR, no MRGs Lungs: CTA b/l, good air entry, no wheezing Abd: soft, nt, nd, bs present, no rebound or guarding present. Neuro:no focal deficit , drowsy Psych: Normal mood and affect Assessment and plan 78 years old white male who has advanced dementia, resides at [facility] Home was sent from there, admitted with left-sided renal colic left-sided obstructive hydronephrosis and possible 9 mm stone with UTI. Now s/p Laser lithotripsy on left and b/l stent placement by urology. Left sided obstructive hydronephrosis with UTI 2/2 stone -Renal colic improved s/p Lithotripsy and b/l stent placement on 11/10 by Urology. Cleared from urology for d/c back to NH if labs improve. -IVF hydration with NS at 75cc/hr -On Levaquin for E. Coli should complete 14 day course. (sensitive per U Cx 11/09). -Urology consult appreciated MARKO vs CKD -not improving with IVF hydration, possibly CKD now. Will monitor. Acute delirium on chronic dementia -1:1 for safety. Frequent reorientation HTN: Continue home medications. Coreg, Amlodipine 5, Losartan 50 A. Fib: rate controlled, c/w Eliquis 2.5mg BID. BPH: continue home medications Vitamin D Def: continue supplementation DVT ppx: eliquis Disposition: no further Urology work up planned, can be discharged with office follow up for cystoscopy and stent removal. - will likely be able to be discharged tomorrow. VS, I&O, 24H, Fishbone Vital Signs/I&O Vital Signs Date Time Temp Pulse Resp B/P (MAP) Pulse Ox O2 Delivery O2 Flow Rate FiO2 11/14/18 20:10 62 160/80 11/14/18 14:00 96.9 18 95 11/11/18 08:00 3.0 11/09/18 22:50 Room Air I&O- Last 24 Hours up to 6 AM 11/14/18 06:00 Intake Total 3780 ml Output Total 1700 ml Balance 2080 ml Laboratory Data 24H LABS Laboratory Tests 2 11/14/18 08:19: Nucleated Red Blood Cells % (auto) 0.0, Anion Gap 6L, Glomerular Filtration Rate > 60.0, Blood Urea Nitrogen 18, Creatinine 1.21, Sodium Level 146H, Potassium Level 3.7, Chloride Level 116H, Carbon Dioxide Level 24, Calcium Level 8.1L, Aspartate Amino Transf (AST/SGOT) 11, Alanine Aminotransferase (ALT/SGPT) 15, Alkaline Phosphatase 68, Total Bilirubin 0.3, Total Protein 5.3L, Albumin 2.6L, Albumin/Globulin Ratio 0.96L CBC/BMP Laboratory Tests 11/14/18 08:19 Red Blood Count 3.76 L, Mean Corpuscular Volume 92.0, Mean Corpuscular Hemoglobin 29.3, Mean Corpuscular Hemoglobin Concent 31.8 L, Red Cell Distribution Width 13.4, Calcium Level 8.1 L, Aspartate Amino Transf (AST/SGOT) 11, Alanine Aminotransferase (ALT/SGPT) 15, Alkaline Phosphatase 68, Total Bi lirubin 0.3, Total Protein 5.3 L, Albumin 2.6 L Microbiology Microbiology 11/09/18 Blood Culture - Final, Complete NO GROWTH AFTER 5 DAYS 11/09/18 Blood Culture - Final, Complete NO GROWTH AFTER 5 DAYS 11/09/18 Urine Culture - Final, Complete Escherichia Coli NAZ SORIANO MD Nov 14, 2018 20:51
[2018-11-14 22:00] VITALS: BP 131/86
[2018-11-15 06:00] VITALS: BP 138/81
[2018-11-15] MEDS: LevoFLOXacin IV 750 MG in APPROPRIATE DILUENT 1 EA IV SCH (08:52)
[2018-11-15] MEDS: APIXABAN 2.5 MG TAB (ELIQUIS) PO SCH (08:53)
[2018-11-15] MEDS: QUEtiapine FUMARATE 50 MG TAB PO SCH (08:53)
[2018-11-15] MEDS: VITAMIN D 1,000 INTERNATIONAL UNITS TABLET PO SCH (08:53)
[2018-11-15] MEDS: LOSARTAN 50 MG TAB PO SCH (08:53)
[2018-11-15] MEDS: QUEtiapine FUMARATE 25 MG TAB PO SCH (08:53)
[2018-11-15 08:54] VITALS: BP 138/81
[2018-11-15] MEDS: CARVedilol 6.25 MG TAB PO SCH (08:54)
[2018-11-15] MEDS: amLODIPine 5 MG TAB PO SCH (08:54)
[2018-11-15] MEDS ORDERED: LEVA750T7 PO (12:28)
== END 2018-11-15 13:41 | DRG 660 ==
LOC: M ED 17:20 → M ED INP 20:22 → M MSPAV 23:05
PROVIDERS: ADMIT Internal Medicine; ATTEND Internal Medicine
PROC: 0TC78ZZ Extirpation of Matter from Left Ureter, Via Natural or Artificial Opening Endoscopic (ICD-10-PCS; 2018-11-10)
PROC: 0T788DZ Dilation of Bilateral Ureters with Intraluminal Device, Via Natural or Artificial Opening Endoscopic (ICD-10-PCS; principal; 2018-11-10 15:00)
DX: N13.6 Pyonephrosis (principal); J98.11 Atelectasis; F03.90 Unspecified dementia, unspecified severity, without behavioral disturbance, psychotic disturbance, mood disturbance, and anxiety; I48.91 Unspecified atrial fibrillation; R15.9 Full incontinence of feces; K59.00 Constipation, unspecified; E11.9 Type 2 diabetes mellitus without complications; R41.0 Disorientation, unspecified; I10 Essential (primary) hypertension; N40.0 Benign prostatic hyperplasia without lower urinary tract symptoms; B96.20 Unspecified Escherichia coli [E. coli] as the cause of diseases classified elsewhere; E55.9 Vitamin D deficiency, unspecified; Z79.01 Long term (current) use of anticoagulants; Z79.899 Other long term (current) drug therapy; Z88.0 Allergy status to penicillin; Z86.711 Personal history of pulmonary embolism; Z86.718 Personal history of other venous thrombosis and embolism

== ENCOUNTER → 2018-11-09 | Outpatient (CLI) | payer MEDICARE, OTHER, MEDICAID ==
[~2018-11-09] MED LIST changes: -LEVA750T7 PO
--- NOTE | 2018-11-09 10:41 | REP ---
CT of the abdomen and pelvis without IV and oral contrast for gross hematuria: There are no comparisons. The visualized lung harrington are unremarkable except for dependent atelectasis. The unenhanced hepatic parenchyma is unremarkable. There are surgical clips in the gallbladder fossa. The unenhanced pancreas, spleen, and adrenals are unremarkable. There is left hydronephrosis and hydroureter. There is a 9 mm calculus in the distal left ureter at the UVJ. There are no left renal calculi. There is an 8 mm calculus in the distal right ureter at the UVJ. The There are no right renal calculi. There is no right hydronephrosis. There are no bladder calculi. The abdominal aorta is unremarkable except for circumferential calcified atheroma. There is no retroperitoneal adenopathy or mass. The bowel and mesentery are unremarkable. Pelvis: The appendix and terminal ileum are unremarkable. There is no adenopathy or ascites. The pelvic bowel loops are unremarkable. Impression: There is a 9 mm calculus in the distal left ureter. There is left hydroureter and hydronephrosis. There is a mm calculus in the distal right ureter. There is no right hydroureter. There is no right hydronephrosis. There are no renal or bladder calculi. Electronically Signed by Orlando Lou MD 11/09/2018 10:32 A
== END ==
LOC: M RAD 09:36
PROVIDERS: ATTEND Nurse Practitioner Family
DX: N20.1 Calculus of ureter (principal); J98.11 Atelectasis; R31.0 Gross hematuria

== ENCOUNTER → 2018-11-19 | Outpatient (REF) | payer MEDICARE, OTHER, MEDICAID ==
[~2018-11-19] MED LIST changes: +LEVA750T7 PO
[2018-11-19 10:11] LABS: HEMATOCRIT 35.2 % (42.0-52.0); HEMOGLOBIN 11.2 g/dl (13.5-17.5); MEAN CORPUSCULAR HEMOGLOBIN 29.4 pg (27.0-33.0); MEAN CORPUSCULAR HGB CONC 31.8 g/dl (32.0-36.5); MEAN CORPUSCULAR VOLUME 92.4 fl (80.0-96.0); PLATELET COUNT, AUTOMATED 160 10^3/uL (150-450); RED BLOOD COUNT 3.81 10^6/uL (4.30-6.10); WHITE BLOOD COUNT 8.5 10^3/uL (4.0-10.0)
[2018-11-19 10:45] LABS: CALCIUM LEVEL 8.4 MG/DL (8.8-10.2); CREATININE FOR GFR 1.32 MG/DL (0.70-1.30); GLOMERULAR FILTRATION RATE 55.7 (>42); POTASSIUM SERUM 3.6 MEQ/L (3.5-5.1)
== END ==
LOC: SKLAB6 07:00
PROVIDERS: ATTEND Internal Medicine
DX: R31.9 Hematuria, unspecified (principal)

== ENCOUNTER → 2018-11-28 | Outpatient (REF) | payer MEDICARE, OTHER, MEDICAID ==
[2018-11-28 10:53] LABS: HEMATOCRIT 37.2 % (42.0-52.0); MEAN CORPUSCULAR HEMOGLOBIN 29.9 pg (27.0-33.0); MEAN CORPUSCULAR HGB CONC 32.3 g/dl (32.0-36.5); MEAN CORPUSCULAR VOLUME 92.8 fl (80.0-96.0); PLATELET COUNT, AUTOMATED 170 10^3/uL (150-450); RED BLOOD COUNT 4.01 10^6/uL (4.30-6.10); WHITE BLOOD COUNT 7.4 10^3/uL (4.0-10.0)
== END ==
LOC: SKLAB6 12:00
PROVIDERS: ATTEND Internal Medicine
DX: R31.9 Hematuria, unspecified (principal)

== ENCOUNTER → 2018-11-29 | Outpatient (REF) | payer MEDICARE, OTHER, MEDICAID ==
[2018-11-29 10:15] LABS: APPEARANCE, URINE TURBID (CLEAR); BACTERIA, URINE AUTO 1+ (NEGATIVE); BILIRUBIN, URINE AUTO NEGATIVE (NEGATIVE); BLOOD, URINE BLOOD 3+ (NEGATIVE); COLOR, URINE YELLOW (YELLOW); GLUCOSE, URINE (UA) AUTO NEGATIVE (NEGATIVE); KETONE, URINE AUTO NEGATIVE (NEGATIVE); LEUKOCYTE ESTERASE, URINE AUTO TRACE (NEGATIVE); NITRITE, URINE AUTO NEGATIVE (NEGATIVE); PROTEIN, URINE AUTO 2+ mg/dL (NEGATIVE); RBC, URINE AUTO TNTC /HPF (0-3); SPECIFIC GRAVITY URINE AUTO 1.015 (1.002-1.035); SQUAMOUS EPITHELIAL CELL UR AU 0 /HPF (0-6); UROBILINOGEN, URINE AUTO 0.2 mg/dL (0.0-2.0); WBC, URINE AUTO TNTC /HPF (0-3)
== END ==
LOC: SKLAB6 07:00
PROVIDERS: ATTEND Internal Medicine
DX: R31.9 Hematuria, unspecified (principal)

== ENCOUNTER 2018-12-03 10:39 | Day surgery (SDC) | payer MEDICARE, OTHER, MEDICAID ==
[~2018-12-03] VITALS: Ht 188 cm; Wt 99.8 kg
[2018-12-03] MEDS ORDERED: LIDOCAINE 2% INJ 100 MG/5 ML SDV (FOR ANES.) As Ordered ONE (11:04)
[2018-12-03] MEDS ORDERED: PROPOFOL 200 MG/20 ML VIAL As Ordered ONE (11:04)
[2018-12-03] MEDS ORDERED: ONDANSETRON 4MG/2ML VIAL (J2405) As Ordered ONE (11:05)
[2018-12-03] MEDS ORDERED: dexameTHASONE 4 MG/ML 1ML VIAL (J1100) As Ordered ONE (11:05)
[2018-12-03] MEDS ORDERED: fentaNYL 100 MCG/2 ML INJECTION (J3010) As Ordered ONE (11:05)
[2018-12-03] MEDS ORDERED: MIDAZOLAM INJ 2 MG/2 ML VIAL (J2250) As Ordered ONE (13:54)
[2018-12-03] MEDS ORDERED: LIDOCAINE 2% 5ML JELLY UROJET As Ordered ONE (14:46)
[2018-12-03] MEDS ORDERED: CIPROFLOXACIN/D5W 400 MG/200 ML BAG (J0744) As Ordered ONE (14:51)
[2018-12-03] MEDS ORDERED: CIPROFLOXACIN 400 MG in APPROPRIATE DILUENT 1 EA IV ONE (15:00)
[2018-12-03 15:44] VITALS: BP 182/70
[2018-12-03] MEDS ORDERED: PROMETHAZINE INJ 25 MG/ML VIAL (J2550) IV PRN (16:45)
[2018-12-03] MEDS ORDERED: oxyCODONE 5MG TAB PO PRN (16:45)
[2018-12-03] MEDS ORDERED: LR 1,000 ML IV SCH (16:45)
[2018-12-03] MEDS ORDERED: ACETAMINOPHEN TAB 650MG DOSE (2X325MG) PO PRN (16:45)
[2018-12-03] MEDS ORDERED: METOCLOPRAMIDE INJ 10MG/2ML VIAL (J2765) IV PRN (16:45)
[2018-12-03] MEDS ORDERED: fentaNYL 100 MCG/2 ML INJECTION (J3010) IV PRN (16:45)
--- NOTE | 2018-12-05 12:55 | RO ---
DATE OF PROCEDURE: 12/03/2018 PREPROCEDURE DIAGNOSES: Kidney stones, retained ureteral stents. POSTPROCEDURE DIAGNOSES: Kidney stones, retained ureteral stents. PROCEDURE: Cystoscopy, removal of bilateral ureteral stents. SURGEON: Tera Rodriguez MD ELECTRONIC REPAIR TROUBLESHOOTER: None. ANESTHESIA: Monitored anesthesia care (MAC). OPERATIVE INDICATIONS: This is a 78-year-old male who recently underwent bilateral ureteroscopy and laser lithotripsy and had bilateral ureteral stents placed. An attempt was made to remove the stents in the office, but due to the patient's agitation, they could not be safely removed. I, therefore, brought him to the operating room. DESCRIPTION OF PROCEDURE: The patient was brought to the operating room, and MAC anesthesia was administered. Prophylactic antibiotics were infused. He was then placed in the dorsal lithotomy position and prepped and draped in the usual sterile fashion. At this point, a rigid cystoscope was inserted into the urethral meatus and advanced into the bladder. The left ureteral stent was then grasped and withdrawn completely from the left ureter intact. Of note, the right ureteral stent appeared to have actually floated up the right ureter, and it could not be seen. Fortunately, part of the string for the stent was seen protruding from the right ureteral orifice. I was, therefore, able to grasp the strings and withdraw the right ureteral stent intact, as well. The bladder was emptied of all fluids, and this marked the conclusion of the procedure. The patient was then taken out of the dorsal lithotomy position, awakened from anesthesia, and transported to the recovery room in stable condition. ESTIMATED BLOOD LOSS: 5 mL. COMPLICATIONS: None. SPECIMENS: None. PLAN: The patient's was advised to have the patient drink plenty of water every day for kidney stone prevention. He will followup as needed. IRMA
== END 2018-12-03 16:45 | disposition home or self-care (01) ==
LOC: M SDC 10:39
PROVIDERS: ATTEND Urology
DX: Z46.6 Encounter for fitting and adjustment of urinary device (principal); N20.0 Calculus of kidney; Z88.0 Allergy status to penicillin; I10 Essential (primary) hypertension; E11.9 Type 2 diabetes mellitus without complications; Z79.899 Other long term (current) drug therapy; F03.90 Unspecified dementia, unspecified severity, without behavioral disturbance, psychotic disturbance, mood disturbance, and anxiety
CPT/HCPCS: 52310; J0744; J1100; J2250; J2405; J3010